=== PATIENT | female | born 1960 | race Caucasian/White ===

== ENCOUNTER 2023-12-04 10:21 | Observation (INO) ==
--- NOTE | 2023-10-22 10:17 | PAT Medication Instructions ---
Medication Instructions Date of Service October 22, 2023 Home Medications Medication Instructions Recorded diclofenac sodium 1 % topical gel 4 g topical ONCE PRN left knee 08/16/20 pain #100 grams fluticasone furoate 27.5 1 spray intranasal BID #47.4 mL 11/29/20 mcg/actuation nasal spray,suspension sumatriptan succinate 100 mg tablet 100 mg PO .COMPLEX #8 tabs 07/28/23 celecoxib 100 mg capsule (Celebrex) 100 mg PO BID PRN pain #60 caps 10/16/23 Medication List: Loperamide Hcl (Imodium) 2 mg PO TID PRN bupropion HCl 300 mg 24 hr tablet, extended release 300 mg PO HS diphenhydramine HCl 25 mg tablet 25 mg PO DAILY PRN Allergy Symptoms duloxetine 60 mg capsule,delayed release 60 mg PO HS loratadine 10 mg tablet 10 mg PO DAILY diclofenac sodium 1 % topical gel 4 g topical ONCE PRN left knee pain fluticasone furoate 27.5 mcg/actuation nasal spray,suspension 1 spray intranasal BID sumatriptan succinate 100 mg tablet 100 mg PO .COMPLEX calcium carbonate 600 mg-vitamin D3 5 mcg (200 unit) tablet 1 tab PO DAILY celecoxib 100 mg capsule (Celebrex) 100 mg PO BID PRN pain MEDICATION INSTRUCTIONS: Continue as directed diclofenac sodium 1 % topical gel 4 g topical ONCE PRN left knee pain (do not use near surgical area after bathing prior to surgery) fluticasone furoate 27.5 mcg/actuation nasal spray,suspension 1 spray intranasal BID ASK your surgeon for instructions celecoxib 100 mg capsule (Celebrex) 100 mg PO BID PRN pain DO NOT take the morning of surgery loratadine 10 mg tablet 10 mg PO DAILY diphenhydramine HCl 25 mg tablet 25 mg PO DAILY PRN Allergy Symptoms calcium carbonate 600 mg-vitamin D3 5 mcg (200 unit) tablet 1 tab PO DAILY Loperamide Hcl (Imodium) 2 mg PO TID PRN Take morning of surgery With a small sip of water, OTHERWISE NOTHING TO EAT OR DRINK AFTER MIDNIGHT: sumatriptan succinate 100 mg tablet 100 mg PO .COMPLEX (if needed) Take evening before surgery bupropion HCl 300 mg 24 hr tablet, extended release 300 mg PO HS duloxetine 60 mg capsule,delayed release 60 mg PO HS Loperamide Hcl (Imodium) 2 mg PO TID PRN sumatriptan succinate 100 mg tablet 100 mg PO .COMPLEX (if needed) Other Notes If you have any questions please call us at [phone] or [phone] or or [phone]
--- NOTE | 2023-11-02 09:12 | Anesthesiology Consultation ---
Date of Service November 02, 2023 Assessment & Plan (1) Encounter for pre-operative examination: - Infectious disease screening: Per assessment on 11/02/23: No known recent infectious disease contacts or current infectious disease symptoms. - Outpatient joint assessment: Pt currently scheduled for inpatient pathway. If surgeon requests review for outpatient joint pathway, patient is an acceptable candidate for outpatient joint program from anesthesia standpoint pending surgeon's office assessment that patient is motivated, has good support and completes [facility] Day Joint Program preop requirements. Chart Review Chart Review: Acceptable Risk for Surgery and Patient seen in Pre Admission Testing Teaching & Discussion Pre-Anesthesia Teaching/Discussion Notes: Instructed NPO after midnight before surgery,except medications with 15 cc of water. Medication instructions provided according to the PAT guidelines. History Surgery Operation Date: 12/04/23 09:00 Proposed Procedures p Left Total Knee Arthroplasty - Timo Luu DO Height/Weight Height: 5 ft 7 in Weight: 88.7 kg Allergies Allergy/AdvReac Type Severity Reaction Status Date / Time quinine Allergy Unknown Throat Verified 10/30/23 14:17 swelling theophylline Allergy Unknown Rash Verified 10/14/23 14:53 Medications Home Medications Medication Instructions Recorded Confirmed Last Taken Loperamide Hcl (Imodium) 2 mg PO TID PRN ##0 08/13/06 10/14/23 Unknown bupropion HCl 300 mg 24 hr tablet, 300 mg PO HS #30 tabs 12/13/18 10/14/23 Unknown extended release diphenhydramine HCl 25 mg tablet 25 mg PO DAILY PRN Allergy Symptoms 12/13/18 10/14/23 Unknown duloxetine 60 mg capsule,delayed 60 mg PO HS 12/13/18 10/14/23 Unknown release loratadine 10 mg tablet 10 mg PO DAILY #90 tabs 12/13/18 10/14/23 Unknown diclofenac sodium 1 % topical gel 4 g topical ONCE PRN left knee 08/16/20 10/14/23 Unknown pain #100 grams fluticasone furoate 27.5 1 spray intranasal BID #47.4 mL 11/29/20 10/14/23 Unknown mcg/actuation nasal spray,suspension sumatriptan succinate 100 mg tablet 100 mg PO .COMPLEX #8 tabs 07/28/23 10/14/23 Unknown calcium carbonate 600 mg-vitamin 1 tab PO DAILY 10/14/23 10/14/23 Unknown D3 5 mcg (200 unit) tablet celecoxib 100 mg capsule (Celebrex) 100 mg PO BID PRN pain #60 caps 10/16/23 Unknown Past Medical History Medical History Allergic rhinitis Arthritis Degenerative arthritis Depression Hypercholesteremia Diet controlled Left knee DJD Migraine Seasonal allergies Exercise / Class Metabolic Activity II 4-5 Yardwork/Stairs/Walk up hill Past Family History Family History Mother Diabetes Father Diabetes Hypertension Colon cancer Denies family history of Ovarian cancer Prostate cancer Myocardial infarction Breast cancer Past Surgical History Surgical History Hx of colonoscopy S/P section Past Anesthesia History No Hx of Anesthesia Complications and No Family Hx of Anesthesia Complications History of PONV No Hx of PONV and No Hx of Motion Sickness Social History Smoking Status: Never smoker Do You Dip or Chew Tobacco: No Hx Alcohol Use: Yes alcohol intake frequency: a few times a month Hx Substance Use: No substance use type: does not use Review of Systems Patient denies chest pain, shortness of breath, dyspnea on exertion, fever, chills, cough, wheezing, palpitations. Physical Exam Vital Signs BP 111/72 P 75 TEMP 98.1 SP02 95%RA RESP 16 Physical Full cervical extension range of motion. Full TMJ range of motion. TMD 3 finger breaths Mallampati Score 2 Dentition: intact Lungs: clear throughout to auscultation Cardiac: regular rate and rhythm, no murmurs noted Spine: normal Carotid arteries: negative bruit Extremities: no LE edema Lab Results Anesthesia Preop Results Results Anesthesia Widget: WBC 5.97 K/ul (4.8-10.8) 11/02/23 Hgb 12.3 g/dl (12.0-16.0) 11/02/23 Hct 36.4 % (37.0-47.0) L 11/02/23 Plt 268 K/uL (130-400) 11/02/23 Na 140 mmol/L (136-145) 11/02/23 K 3.9 mmol/L (3.5-5.1) 11/02/23 Cl 104 mmol/L (98-107) 11/02/23 CO2 31 mmol/L (21-32) 11/02/23 BUN 17 mg/dl (6-23) 11/02/23 Creat 0.84 mg/dl (0.6-1.2) 11/02/23 Glucose Level 87 mg/dl (70-99(Fasting)) 11/02/23 PT 10.3 Seconds (9.0-12.0) 11/02/23 PTT 25 Seconds (21-31) 11/02/23 INR 0.9 (0.9-1.1) 11/02/23 Blood Type O Positive 11/02/23 Antibody Screen NEGATIVE 11/02/23 Testing Electrocardiogram Date: 11/02/23 Findings: + NSR @ (71) Chest X-Ray Date: 11/02/23 FINDINGS: Lung volumes are normal. Lungs are clear. There is no pneumothorax or pleural effusion. Cardiac size is normal. Mediastinal contours are normal. There is no evidence for pulmonary edema. IMPRESSION: No acute cardiopulmonary findings.
--- NOTE | 2023-12-02 12:41 | History & Physical Report ---
Date of Service December 02, 2023 Assessment & Plan (1) Primary osteoarthritis of left knee: We will proceed with a left total knee arthroplasty. Postoperatively she will be started on aspirin for DVT prophylaxis and kept overnight in the hospital for postop medical management. She plans to use energy physical therapy upon discharge. History of Present Illness Chief Complaint: Osteoarthritis of the left knee. Primary Care Provider: Dennis Mckeon MD Molly is a pleasant 63-year-old female who has been dealing with chronic increasing left knee pain. X-rays and clinical examination have been diagnostic for advanced arthritis of the left knee. She has been seeing my partner who has been doing conservative management. She has done exercises and activity modifications. She has taken anti-inflammatories and has had multiple injections. After failing conservative treatment, she has elected proceed with a left total knee arthroplasty. Allergies Allergy/AdvReac Type Severity Reaction Status Date / Time quinine Allergy Unknown Throat Verified 10/30/23 14:17 swelling theophylline Allergy Unknown Rash Verified 10/14/23 14:53 Home Medications Medication Instructions Recorded Confirmed Type Loperamide Hcl (Imodium) 2 mg PO TID PRN ##0 08/13/06 10/14/23 History bupropion HCl 300 mg 24 hr tablet, 300 mg PO HS #30 tabs 12/13/18 10/14/23 History extended release diphenhydramine HCl 25 mg tablet 25 mg PO DAILY PRN Allergy Symptoms 12/13/18 10/14/23 History duloxetine 60 mg capsule,delayed 60 mg PO HS 12/13/18 10/14/23 History release loratadine 10 mg tablet 10 mg PO DAILY #90 tabs 12/13/18 10/14/23 History diclofenac sodium 1 % topical gel 4 g topical ONCE PRN left knee 08/16/20 10/14/23 Rx pain #100 grams fluticasone furoate 27.5 1 spray intranasal BID #47.4 mL 11/29/20 10/14/23 Rx mcg/actuation nasal spray,suspension sumatriptan succinate 100 mg tablet 100 mg PO .COMPLEX #8 tabs 07/28/23 10/14/23 Rx calcium carbonate 600 mg-vitamin 1 tab PO DAILY 10/14/23 10/14/23 History D3 5 mcg (200 unit) tablet celecoxib 100 mg capsule (Celebrex) 100 mg PO BID PRN pain #60 caps 10/16/23 Rx celecoxib 100 mg capsule (Celebrex) 100 mg PO BID #60 caps 11/19/23 Rx Past Med/Surg History Problem List (Updated 12/02/23 @ 12:41 by Timo Luu DO) Primary osteoarthritis of left knee CMC arthritis, thumb, degenerative Medical History Degenerative arthritis Left knee DJD Hypercholesteremia Diet controlled Arthritis Allergic rhinitis Migraine Depression Seasonal allergies Surgical History Hx of colonoscopy S/P section Family History Mother Diabetes Father Diabetes Hypertension Colon cancer Denies family history of Ovarian cancer Prostate cancer Myocardial infarction Breast cancer Social History Smoking Status: Never smoker Second Hand Exposure: No; Do You Dip or Chew Tobacco: No; Tobacco Cessation Education Requested by Patient: No Hx Alcohol Use: Yes Hx Substance Use: No Preferred Language: Irish Communication Ability: Effective Administrative Tech Required: No Beliefs That Will Affect Care: None marital status: Current Living Situation: Spouse current occupational status: employed current occupation: [employer] Other Information That Helps Us Care for You: No Feels Safe at Home: Yes Safety Concerns: Feels Safe At This Time Childhood Exposure to Second-Hand Smoke: No Dental Care, Regularly: No Physical Activity Frequency: 3-4 Times per Week Seatbelt Use: always Sunscreen Use: Yes Assistive Devices: Contacts and Glasses Review of Systems All systems reviewed & are unremarkable except as noted in HPI & below. Physical Exam Physical examination of the left knee shows a varus deformity. She has tenderness palpation of the distal medial femoral condyle and over the medial gunnar int line.. Results & Data Results & Data Laboratory Results . Diagnostic Findings X-rays of the left knee show advanced medial compartment arthritis with joint space narrowing, osteophyte formation, and [id number] articulation. PG Care Time/CCT Total # of Minutes Spent Total Time Spent with Patient: Total time spent is greater than 50% in coordination of care (as documented) at patient's floor/unit and/or counseling patient: Coding Level of Care Code None Diagnoses Primary osteoarthritis of left knee M17.12
[~2023-12-04 10:21] MED LIST: BUPIVACAINE 0.5 % 5 MG/1 ML PF 10ML VIAL ONE; ROPIVACAINE 0.5% 5 MG/ML 30 ML VIAL ONE
[2023-12-04] MEDS ORDERED: MIDAZOLAM HCL 1 MG/ML 2ML VIAL ONE (10:28)
[2023-12-04] MEDS ORDERED: fentaNYL citrate PF 100 MCG/2 ML VIAL ONE (10:28)
[2023-12-04] MEDS ORDERED: ONDANSETRON INJ 2 MG/ML 2 ML VIAL ONE (10:28)
[2023-12-04] MEDS ORDERED: PROPOFOL IV EMULSION 10 MG/ML 20 ML VIAL IV ONE ×2 (10:28→10:33)
[2023-12-04] MEDS: LR 60ML/HR IV SCH (10:57)
[2023-12-04] MEDS: LR 500ML BOLUS, THEN 15ML/HR IV SCH (10:57)
[2023-12-04] MEDS: GABAPENTIN 600 MG DOSE PO SCH (10:57)
[2023-12-04] MEDS: ACETAMINOPHEN 500 MG TAB PO SCH ×2 (10:58→21:32)
[2023-12-04] MEDS: dexAMETHasone**PF** 10 MG/ML VIAL IV SCH (10:58)
[2023-12-04] MEDS: FAMOTIDINE 20 MG TAB PO SCH (10:58)
--- NOTE | 2023-12-04 11:13 | History & Physical Bridge Note ---
Date of Service December 04, 2023 History & Physical Bridge Note I have examined the patient, reviewed the History & Physical and in the interval since the performance of the History & Physical I have noted the following changes of clinical significance: no changes noted
[2023-12-04] MEDS ORDERED: ePHEDrine sulfate 50 MG/ML AMP IV PRN (11:49)
[2023-12-04] MEDS ORDERED: ATROPINE SULFATE 0.1 MG/ML 10ML SYR IV PRN (11:49)
[2023-12-04] MEDS ORDERED: ONDANSETRON INJ 2 MG/ML 2 ML VIAL IV PRN ×2 (11:49→16:00)
[2023-12-04] MEDS ORDERED: fentaNYL citrate PF 100 MCG/2 ML VIAL IV PRN (11:49)
[2023-12-04] MEDS: TRANEXAMIC ACID 1,000 MG **IV Pre-op IV SCH (12:42)
[2023-12-04] MEDS: ceFAZolin 2000MG 2,000 MG/15 ML SYR IV SCH ×2 (13:00→21:32)
[2023-12-04] MEDS: ROPIV 0.5% 246mg, Ketorolac 30mg, EPINEPHrine 0.5mg in NSS INFIL SCH (13:23)
[2023-12-04] MEDS ORDERED: PHENYLEPHRINE 100MCG/ML 10ML SYR IV ONE (13:47)
[2023-12-04] MEDS: TRANEXAMIC ACID 1,000 MG **IV Intra-op IV SCH (13:56)
--- NOTE | 2023-12-04 14:44 | Operative Report ---
PG Post Operative Report Pre & Post Diagnosis Operation Date: 12/04/23 12:00 Pre-Op Diagnosis: Left Knee Degenerative Joint Disease Post-Op Diagnosis: Left Knee Degenerative Joint Disease I identified the patient and participated in the time-out.: Yes Procedure Operation Date: 12/04/23 12:00 Actual Procedures p Left Total Knee Arthroplasty(Left) - Timo Luu DO Surgeon Timo Luu DO Backend Python Developer Timo Payton PA-C Estimated Blood Loss 30 Findings Consistent with Post-Op Diagnosis Specimens Left femoral and tibial bone Description of Procedure Implants used: I used a Viv Persona total knee arthroplasty system with a size 7 narrow femur, E tibia, 31 oval patella, and a size 11 medial congruent polyethylene bearing. All components were cemented in place with Biomet cement. Molly arrived [facility] for the above procedure. She was seen in the preoperative holding area and the operative extremity was identified and signed. She was given a preoperative antibiotic, TXA, a spinal anesthetic and an adductor nerve block. She was taken back to the operating room and laid on the table in supine position. She was given basic sedation. The operative knee was then prepped and draped in sterile fashion. A timeout was done, and the patient and the operative extremity was properly identified. A midline incision was made directly over the patella. Dissection was taken down to the extensor mechanism. A subvastus arthrotomy was used. The medial retinaculum was released and the fat pad was mostly excised. The knee was flexed and the ACL, PCL, and meniscus were removed. A drill was sent down the center of the femoral canal followed by an intramedullary flash. Off that flash a distal femoral cutting block was placed. 9 mm was resected off the distal femur at 5 of valgus. A posterior referencing AP sizing guide was then placed on the distal femur. The femur measured to be a size 7. 2 drill holes were placed in 3 of external rotation. A 4-in-1 cutting block was then impacted into place. Anterior, posterior, and chamfer cuts were then made. The proximal tibia was then exposed. An external tibial alignment guide was placed. A tibial cut guide was then anchored in place and the proximal tibia was then resected. The posterior aspect of the knee was then opened up and any additional meniscus fragments and osteophytes were removed. The tibia measured to be a size E. The tibial plate was then placed in the appropriate rotation and the tibia was drilled and punched. Trial components were then placed. I used a size 11 medial congruent polyethylene insert. The knee was brought through a full range of motion and felt to be stable. The peg holes for the femoral component were then drilled. The patella was then everted and 9 mm was resected off the posterior aspect of the patella. The patella measured to be a size 31 oval. 3 peg holes were then drilled. A trial patella was placed. The knee was once again brought through a full range of motion and felt to be stable. Trial components were then removed. The surrounding soft tissues were injected with 100 cc of an orthopedic pain control cocktail. All components were then cemented into place with Biomet cement. The final polyethylene insert was then snapped into place. Once cement was dry the tourniquet was deflated. Hemostasis was obtained. A dilute betadyne lavage was then done for 3 minutes. The joint was then irrigated with normal saline solution. The subvastus arthrotomy was then closed with #1 Vicryl suture. The skin was closed with 2-0 Vicryl, 3-0V lock suture, and joselin. A soft compressive dressing was placed. She was then transferred to a hospital bed and taken to the postanesthesia care unit in stable condition. She tolerated the procedure well. Timo Payton PA-C, was present for the entire procedure. He was critical for patient positioning, prepping, draping, retraction exposure, wound closure and application of sterile dressing. I attest to the content of the Intraoperative Record and any orders documented therein. Any exceptions are noted below.
--- NOTE | 2023-12-04 15:06 | XRay Report ---
XR knee LT 1 or 2V routine HISTORY: 63 years-old Female Surgical Post Op left knee arthroplasty COMPARISON: 08/11/2023 TECHNIQUE: 2 views of the left knee FINDINGS: Total joint arthroplasty with patellar resurfacing. Anterior midline skin joselin with expected posto perative soft tissue swelling and deep tissue air. No acute fracture, dislocation or unexpected opaqu e foreign body. IMPRESSION: Total joint arthroplasty with expected postoperative changes. ACT 112: Negative or not required by law. The above report was generated using voice recognition software. It may contain grammatical, syntax o r spelling errors. Electronically signed by: Quinn Maxwell M.D. 12/04/2023 3:05 PM
--- NOTE | 2023-12-04 15:26 | Anesthesiology Progress Note ---
Date of Service December 04, 2023 Anesthesia Post Procedure Vital Signs Vital Signs: Temp Pulse Pulse Resp BP Pulse Ox O2 Del Method 12/04/23 15:10 36.3 C L 73 15 133/74 98 Nasal Cannula 12/04/23 15:00 70 16 137/74 97 Nasal Cannula 12/04/23 14:50 71 21 115/63 99 Nasal Cannula 12/04/23 14:40 72 18 121/69 93 Nasal Cannula 12/04/23 14:30 76 14 115/67 95 Nasal Cannula 12/04/23 14:22 36.1 C L 77 24 120/64 98 Oxymask 12/04/23 10:45 36.8 C 84 20 156/79 H 98 Room Air O2 Flow Rate 12/04/23 15:10 2 12/04/23 15:00 2 12/04/23 14:50 2 12/04/23 14:40 2 12/04/23 14:30 2 12/04/23 14:22 6 12/04/23 10:45 Transfer of Care Handoff Completed per policy Notes Mental Status: alert / awake / arousable and participated in evaluation Patient Amnestic to Procedure: Yes Nausea / Vomiting: adequately controlled Pain: adequately controlled Airway Patency, RR, SpO2: stable & adequate BP & HR: stable & adequate Hydration State: stable & adequate Anesthetic Complications: no major complications apparent and Pt Satisfied with anesthetic care
[2023-12-04] MEDS: ORTHO JOINT ANESTHETIC ONE (15:56)
[2023-12-04] MEDS ORDERED: MAGNESIUM HYDROXIDE SUSP 30 ML UDC PO PRN (16:00)
[2023-12-04] MEDS ORDERED: bisacodyL 10 MG SUPP PR PRN (16:00)
[2023-12-04] MEDS ORDERED: METOCLOPRAMIDE HCL INJ 5 MG/ML 2 ML VIAL IV PRN (16:00)
[2023-12-04] MEDS ORDERED: HYDROmorphone INJ 0.5 MG/0.5 ML SYR IV PRN (16:00)
[2023-12-04] MEDS ORDERED: NALOXONE HCL 0.4 MG/1 ML VIAL/CARP IV PRN (16:00)
[2023-12-04] MEDS ORDERED: diphenhydrAMINE Capsule 25 MG CAP PO PRN (16:21)
[2023-12-04] MEDS ORDERED: LOPERAMIDE HCL 2 MG CAP PO PRN (16:23)
[2023-12-04] MEDS ORDERED: SUMAtriptan succinate 100 MG TAB PO PRN (16:24)
[2023-12-04] MEDS: SODIUM CHLORIDE 0.9% 1,000 ML IV SCH (16:27)
[2023-12-04] MEDS: KETOROLAC 30 MG/ML VIAL IV SCH (16:42)
[2023-12-04] MEDS: oxyCODONE HCL IR 5 MG TAB (IMMEDIATE RELEASE) PO PRN (19:26)
[2023-12-04] MEDS: DULoxetine HCL 60 MG CAP PO SCH (21:21)
[2023-12-04] MEDS: buPROPion XL 300 MG TABCR PO SCH (21:21)
[2023-12-04] MEDS: ASPIRIN 81 MG ECTAB PO SCH (21:21)
[2023-12-04] MEDS: SENNA 8.6 MG TAB PO SCH (21:32)
[2023-12-04] MEDS: DOCUSATE SODIUM 100 MG CAP PO SCH (21:32)
--- OUTSIDE RECORDS SUMMARY | 2023-12-04 22:26 | External Medical Summary | Summary of Care ---
Author Name Unknown Organization [facility] Address [address] [facility] [place] [address] Phone [phone] Care Team Providers Care Fly Finisher Name Role Phone Dennis Mckeon MD Primary Care Provider [phone] Reason for Visit * Reason Comments Sore Throat A lot of drainage do wn her throat. Other Chest tightness and SOB from a lot of drainage. Knee surgery next Thursday. Encounter Details Date Type Department Care Team (Late st Contact Info) Description 11/24/2023 9:25 AM EDT [facility] [address] [place] [address] [id number] Cirilo Doherty PA-C [address] [place] [address] [id number] Sore throat*; Upper respiratory tract infection, unspecified type Allergies Active Allergy Reactions Criticality Noted Date Comments Quinine Rash 11/30/2015 Theophylline Anhydrous 10/21/2007 documented as of this encounter (statuses as of 11/24/2023) Medications Medication Sig Dispensed Refills Start Date End Date Status SUMATRIPTAN SUCCINATE 100 MG PO TABSIndications:Mi graine TAKE 1 TABLET AT ONSET, REPEAT IN 2 HOURS IF NEEDED. 9 Tab 6 07/16/2012 Active buPROPion XL (WELLBUTRIN XL) 300 MG TB24 Take 1 Tablet by mouth in the morning. 2 09/14/2015 Active DULoxetine (CYMBALTA) 60 MG CPEP Take 1 Capsule by mouth in the morning. 3 09/25/2015 Active Diclofenac Sodium 75 MG Oral Tablet Delayed Release (Voltaren) 04/25/2021 Active Ventolin HFA 108 (90 Base) MCG/ACT Inhalation Aerosol Solution Inhale by mouth 2 Puffs every 4 hours as needed for Cough or Wheezing. 18 g 1 02/14/2022 Active Azithromycin 250 MG Oral Tablet (Zithromax Z-Thai) Take two tablets by mouth on first day, then 1 tablet daily until gone 6 Tablet 02/14/2022 Active Additional Information Patient not taking.Reported on 11/24/2023 predniSONE 10 MG Oral Tablet (Deltasone)Indicat ions:SOB (shortness of breath),Chest tightness,Viral respiratory illness Take 5 tabs for 2 days, 4 tabs for 2 days, 3 tabs for 2 days, 2 tabs for 2 days 1 tab for 2 days 30 Tablet 02/15/2023 Active Additional Information Patient not taking.Reported on 11/24/2023 Albuterol Sulfate HFA 108 (90 Base) MCG/ACT Inhalation Aerosol SolutionIndication s:SOB (shortness of breath),Chest tightness,Viral respiratory illness Inhale 2 Puffs by mouth every 4 hours as needed for Dyspnea or Wheezing. 18 g 02/15/2023 Active Celecoxib 100 MG Oral Capsule (CeleBREX) Take 1 Capsule by mouth in the morning and 1 Capsule before bedtime. 11/19/2023 Active predniSONE 20 MG Oral Tablet (Deltasone) Take 1 Tablet by mouth 2 times a day for 3 days. 6 Tablet 11/24/2023 11/27/2023 Active Promethazine-DM 6.25-15 MG/5ML Oral Syrup Take 5 mL by mouth 4 times a day as needed for Cough. 120 mL 1 11/24/2023 Active documented as of this encounter (statuses as of 11/24/2023) Active Problems Problem Noted Date Diagnosed Date Migraine with aura 12/09/2007 documented as of this encounter (statuses as of 11/24/2023) Social History Tobacco Use Types Packs/Day Years Used Date Smoking Tobacco: Never Alcohol Use Standard Drinks/Week Comments Yes 0 (1 standard drink = 0.6 oz pur e alcohol) occasional Utilities Answer Date Recorded Do you have trouble paying y our heating, water, or electric bill? (Adult - for ages 18 years and over) Not on file 11/10/2023 Is your family able to pay t he heat, water, or electric bill? (Household - for ages 0-17 years) Not on file 11/10/2023 Does your family have access to good internet? (Household - for ages 0-17 years) Not on file 11/10/2023 Social Connections Answer Date Recorded How often do you feel lonely or isolated from those around you? (Adult - for ages 18 years and over) Not on file 11/10/2023 Sex and Gender Information Value Date Recorded Sex Assigned at Not on file Gender Identity Not on file Sexual Orientation Not on file Job Start Date Occupation Industry Not on file Not on file Not on file documented as of this encounter Last Filed Vital Signs Vital Sign Reading Time Taken Comments Blood Pressure 136/88 11/24/2023 9:32 AM EDT Pulse 91 11/24/2023 9:32 AM EDT Temperature 36.9 C (98.4 F) 11/24/2023 9:32 AM ED T Respiratory Rate 16 11/24/2023 9:32 AM EDT Oxygen Saturation 97% 11/24/2023 9:32 AM EDT Inhaled Oxygen Concentration - - Weight - - Height - - Body Mass Index - - documented in this encounter Patient Instructions * Patient Instructions* Cirilo Doherty PA-C - 11/24/2023 9:43 AM EDT FLUIDS FLUIDS FLUIDS; MOTRIN AND TYLENOL DIRECTED FOR PAIN AND FEVERS; RETURN TO or SEE PCP IF NEEDED. documented in this encounter Progress Notes * Cirilo Doherty PA-C - 11/24/2023 9:33 AM EDT Subjective: Molly Naqvi is a 63 year old female. Chief Complaint Patient presents with Sore Throat A lot of drainage down her throat. Other Chest tightness and SOB from a lot of drainage. Knee surgery next Thursday. Nursing Notes: Jessy Alfaro LPN 11/24/23 0974 Signed Nursing Notes: CC: Chief Complaint Patient presents with Sore Throat A lot of drainage down her throat. Other Chest tightness and SOB from a lot of drainage. Knee surgery next Thursday. Brief Hx: Patient is here with complaint of sore throat with a lot of drainage down her throat, Productive cough and she said yesterday she had a lot of tightness in her chest and SOB from all of thedrainage. Patient said she has knee surgery next Thursday and want's to be better before then Duration/Onset: Thursday OTC meds: mucinex and her inhaler Accompanied by: self HPI: 2 DAYS NOW OF SORE THROAT, SINUS HEADACHE/CONGESTION; HAS HAD FOR 1-2 DAYS LONGER; NO FEVERS; USING MUCINEX AND INHALER FOR THE TIGHTNESS IN CHEST/THROAT; IS IN A/C AT WORK BUT NOT MUCH AT HOME; WAS OFF FROM WORK YESTERDAY AND IS SCHEDULED TO GO TO WORK TODAY ([employer]) BUT STOPPED IN HERE FIRST; IS SCHEDULED TO HAVE KNEE SURGERY 12/03 AND HOPING TO BE BETTER BEFORE THEN. All other systems reviewed and are negative. Patient Active Problem List Diagnosis Migraine with aura Current Outpatient Medications Medication Sig Dispense Refill SUMATRIPTAN SUCCINATE 100 MG PO TABS TAKE 1 TABLET AT ONSET, REPEAT IN 2 HOURS IF NEEDED. 9 Tab 6 buPROPion XL (WELLBUTRIN XL) 300 MG TB24 Take 1 Tablet by mouth in the morning. 2 DULoxetine (CYMBALTA) 60 MG CPEP Take 1 Capsule by mouth in the morning. 3 Ventolin HFA 108 (90 Base) MCG/ACT Inhalation Aerosol Solution Inhale by mouth 2 Puffs every 4 hours as needed for Cough or Wheezing. 18 g 1 Albuterol Sulfate HFA 108 (90 Base) MCG/ACT Inhalation Aerosol Solution Inhale 2 Puffs by mouth every 4 hours as needed for Dyspnea or Wheezing. 18 g 0 Celecoxib 100 MG Oral Capsule (CeleBREX) Take 1 Capsule by mouth in the morning and 1 Capsule before bedtime. predniSONE 20 MG Oral Tablet (Deltasone) Take 1 Tablet by mouth 2 times a day for 3 days. 6 Tablet 0 Promethazine-DM 6.25-15 MG/5ML Oral Syrup Take 5 mL by mouth 4 times a day as needed for Cough. 120mL 1 Diclofenac Sodium 75 MG Oral Tablet Delayed Release (Voltaren) (Patient not taking: Reported on 11/24/2023) Azithromycin 250 MG Oral Tablet (Zithromax Z-Thai) Take two tablets by mouth on first day, then 1 tablet daily until gone (Patient not taking: Reported on 11/24/2023) 6 Tablet 0 predniSONE 10 MG Oral Tablet (Deltasone) Take 5 tabs for 2 days, 4 tabs for 2 days, 3 tabs for 2 days, 2 tabs for 2 days 1 tab for 2 days (Patient not taking: Reported on 11/24/2023) 30 Tablet 0 No current facility-administered medications for this visit. Review of patient's allergies indicates: Allergen Reactions Quinine Rash Theophylline Anhydrous OBJECTIVE: BP 136/88 | Pulse 91 | Temp 36.9 C (98.4 F) (Tympanic) | Resp 16 | SpO2 97% Review of Systems: See HPI. All other systems reviewed and are negative. PHYSICAL EXAM: General: alert, healthy, and no distress; PLEASANT; MILDLY FATIGUED. Head: Normocephalic, No masses, lesions, tenderness or abnormalities Eye Exam: PERRLA, extraocular movements intact, conjunctiva are pink and non- injected, sclera GLASSY Ears: External ears normal, Canals clear, TM's Normal Nose: no mucosal erythema, SLIGHT mucosal edema, no purulent discharge Oropharynx: no exudate, no erythema, lips, buccal mucosa, and tongue normal, and mucous membranes are moist; NO PND Lymph: NO palpable lymphadenopathy Heart: regular rate & rhythm, no murmur, and no gallops Lungs: chest symmetric with normal AP diameter, no chest deformities noted, no chest wall tenderness, lungs clear to auscultation; NO WHEEZE; NO RHONCHI, BUT MILD THROAT CLEARING/DRY COUGH NOTED. Neuro Exam: alert & oriented x 3 with fluent speech, no focal motor/sensory deficits, gait normal, reflexes normal and symmetric ASSESSMENT/PLAN: Sore throat (Primary) - STREP A SCREEN, POINT OF CARE (ENTER/EDIT) - GROUP A STREP PCR - RETURN TO WORK OR SCHOOL Upper respiratory tract infection, unspecified type - RETURN TO WORK OR SCHOOL Other orders - predniSONE 20 MG Oral Tablet (Deltasone); Take 1 Tablet by mouth 2 times a day for 3 days. - Promethazine-DM 6.25-15 MG/5ML Oral Syrup; Take 5 mL by mouth 4 times a day as needed for Cough. Cirilo Doherty PA-C 11/24/23 documented in this encounter Nursing Notes * Jessy Alfaro LPN - 11/24/2023 9:29 AM EDT Nursing Notes: CC: Chief Complaint Patient presents with Sore Throat A lot of drainage down her throat. Other Chest tightness and SOB from a lot of drainage. Knee surgery next Thursday. Brief Hx: Patient is here with complaint of sore throat with a lot of drainage down her throat, Productive cough and she said yesterday she had a lot of tightness in her chest and SOB from all of thedrainage. Patient said she has knee surgery next Thursday and want's to be better before then Duration/Onset: Thursday OTC meds: mucinex and her inhaler Accompanied by: self documented in this encounter Plan of Treatment Pending Results Name Type Priority Associated Diagnoses Date /Time GROUP A STREP PCR Lab Routine Sore throat 11/24/2023 9:43 AM EDT Health Maintenance Due Date Last Done Comments Lipid Panel 1961 Depression Screening 1973 HIV Screening 02/11/1976 Hepatitis C Screening 1979 DTaP,Tdap,and Td Vaccines (1 - Tdap) 02/11/1980 Pap Smear 1982 Cervical Cancer Screening 1991 HPV/Co-Test 1991 Mammogram 2001 Cologuard 2006 Colonoscopy 2006 Colorectal Cancer Screening 2006 Fecal Occult Blood Test 2006 Sigmoidoscopy 2006 Influenza Vaccine (FLU shot) (#1) 2024 02/27/2023, 03/18/2022, 03/12/2021, Additional history exists Zoster Vaccines Completed 03/25/2018, 01/23, 01/23/2018 COVID-19 Vaccine Completed 02/27/2023, , 09/23/2021, Additional history exists GARDASIL-HPV IMMUNIZATION SERIES Aged Out No longer eligible based on patient's age to complete this topic Hepatitis B Aged Out No longer eligi ble based on patient's age to complete this topic MENINGOCOCCAL (MENACTRA/MENVEO) Aged Out No longer eligible based on patient's age to complete this topic Pneumococcal Vaccine: Pediatrics (0 to 5 Years) and At-Risk Patients (6 to 64 Years) Aged Out No longer eligible based on patient's age to complete this topic documented as of this encounter Medical Devices Not on filedocumented as of this encounter Procedures Procedure Name Priority Date/Time Associated Diagnosis Comments STREP A SCREEN, POINT OF CARE (ENTER/EDIT) Routine 11/24/2023 Sore throat documented in this encounter Results * STREP A SCREEN, POINT OF CARE (ENTER/EDIT) (11/24/2023) Strep A Result Negative Negative Procedural Control Valid? Yes Lot Number [id number] Expiration Date 11/05/24 Swab Throat swab / Unknown 11/24/2023 Cirilo Doherty PA-C LAB POINT OF CA RE TEST ENTER/EDIT ORDERABLES documented in this encounter Visit Diagnoses Diagnosis Sore throat- Primary Acute pharyngitis Upper respiratory tract infection, unspecified type documented in this encounter Care Teams Fly Finisher Relationship Specialty Start Date End Date Pro, Dennis Nunes MD [address] [place] [address] PCP - General Internal Medicine 11/30/15 documented as of this encounter"
--- OUTSIDE RECORDS SUMMARY | 2023-12-04 22:26 | External Medical Summary ---
Author Name Unknown Address Unknown Organization K01:[facility] [address] [facility] [address] Laboratory Report Ordering Provider Test Date Status MADDYBHAVNA 11/24/2023 09:43:32 Final Observation Date Value Abnormality Reference (Units) Status Streptococcus pyogenes DNA [Presence] in Throat by PEEWEE with probe detection 11/24/2023 09:43:32 Negative. No Group A Streptococcus detected by PCR (amplified probe). Negative Final This test was developed and its performance characteristics determined by [facility]. It has not been cleared or approved by the FDA. The laboratory is regulated under CLIA as qualified to perform high- complexity testing. This test is used for clinical purposes. It should not be regarded as investigational or for research. Performing Location LAB[facility]AT[facility] [address] [place] [facility] [address]
--- NOTE | 2023-12-05 07:41 | Orthopedic Progress Note ---
Date of Service December 05, 2023 Assessment & Plan (1) Status post left knee replacement: Overall she is doing well. She is not having much pain in the left knee. She will be seen by physical therapy today for ambulation and range of motion exercises. The nursing staff can change her dressing after physical therapy. She is on aspirin for DVT prophylaxis. She can be discharged home later today. She will follow-up with orthopedics in 2 weeks. Brendan Barnes was seen and examined at bedside this morning. Overall she is doing very well. She not having much pain in the left knee. She has been up and ambulating to the bathroom. She has no complaints.. Review of Systems All systems reviewed & are unremarkable except as noted in HPI & below. Physical Exam Physical examination of the left knee, the dressing is clean and dry. Her leg is out full extension. She has active dorsiflexion plantarflexion of her left ankle.. Results & Data Results & Data Laboratory Results . Diagnostic Findings Postoperative x-rays of the left knee show the prosthesis to be in anatomic alignment without any evidence of fracture, his cage, or loosening.. PG Care Time/CCT Total # of Minutes Spent Total Time Spent with Patient: Total time spent is greater than 50% in coordination of care (as documented) at patient's floor/unit and/or counseling patient: Coding Level of Care Code 35457 Post Operative Follow-Up Diagnoses Status post left knee replacement Z96.652
--- NOTE | 2023-12-05 07:42 | Discharge Summary ---
Date of Service December 05, 2023 Admission HPI (Per Admitting) Molly is a pleasant 63-year-old female who has been dealing with chronic increasing left knee pain. X-rays and clinical examination have been diagnostic for advanced arthritis of the left knee. She has been seeing my partner who has been doing conservative management. She has done exercises and activity modifications. She has taken anti-inflammatories and has had multiple injections. After failing conservative treatment, she has elected proceed with a left total knee arthroplasty. Admission Exam (Per Admitting) Physical examination of the left knee shows a varus deformity. She has tenderness palpation of the distal medial femoral condyle and over the medial joint line.. Principal Diagnosis Same as "Discharge Diagnosis" noted below under Discharge Instructions. Discharge Exam Physical examination of the left knee, the dressing is clean and dry. Her leg is out full extension. She has active dorsiflexion plantarflexion of her left ankle.. Discharge Data Procedures Performed Operation Date: 12/04/23 12:00 Actual Procedures p Left Total Knee Arthroplasty(Left) - Timo Luu DO Ordered Studies 12/04/23 05:00 US - OR guided needle placemen Routine Hospital Course (1) Status post left knee replacement: On December 04, [address] [facility] and underwent a left knee replacement without complication. She had a spinal anesthetic. Postoperatively she was started on aspirin for DVT prophylaxis and transferred to the general orthopedic floors. Her hospital course was uneventful. On postop day #1, her vital signs were stable and her pain was well-controlled. She was able to participate well with physical therapy doing ambulation and range of motion exercises. She was then discharged home. She will follow-up with orthopedics in 2 weeks. PG Care Time/CCT Total # of Minutes Spent Total Time Spent with Patient: Total time spent is greater than 50% in coordination of care (as documented) at patient's floor/unit and/or counseling patient: Discharge Plan Discharge Items Patient Disposition: Home - Self-Care Reason For Visit: Left Knee Degenerative Joint Disease Discharge Diagnosis: Left knee replacement Activity: Per Instructions section Non-emergency contact: Surgeon Call non-emergency contact if: your wound has increased redness and your wound has increased drainage Follow-up/Referrals: Pro,Dennis Rodriguez MD [Primary Care Provider] - Diet: Regular Addtl Attending Provider Instructions: Activity and Therapy Recommendations: * If you are using [facility] then therapy will be provided at your home until they feel you have accomplished all of your goals. * If you are using [facility] then Physical Therapy will be provided until they feel you are ready to start Outpatient Physical Therapy. * If you are not using home therapy then Outpatient Physical Therapy should start about 3-5 days from your day of surgery. Therapy will last about 6-10 weeks * It is important not to put a pillow under your knee when you are relaxing or sleeping. It is just as important to make sure you are getting your knee perfectly straight as it is to regain your knee bend. * You were shown a series of exercises in the hospital. Do these exercises three times each day including the exercises you were shown in physical therapy. * Get up and walk several times each day. For the first four weeks, try not to stand or walk for more than one hour at a time. If you do stand or walk for more than one hour, you will not hurt anything, but your leg will likely swell. * As you feel comfortable, you may change from the walker or crutches to a cane and then to independent walking. Medications: * Narcotic You will likely be sent home from the hospital with a prescription for the narcotic pain medication that worked best throughout your stay. * Cefadroxil -take the antibiotic twice a day for 10 days to help prevent infection. * Aspirin Most patients will be required to take Aspirin 81mg twice a day for 6 weeks after surgery. This is obtained [id number] and a prescription is not necessary. * Other medications may be prescribed for specific circumstances. If you have any questions, please call the office at . * Resume previous home medications unless otherwise instructed TEDs/Elastic Stockings: The white elastic stockings help limit swelling and prevent blood clots from forming in your legs.~ The more you wear them, the more they work. Wear them for six weeks. Dressing Care: The dressing can be changed after physical therapy on postop day #1. Daily dry dressing changes for a few days, especially if the incision is still draining some. If the incision is not draining then you may leave the joselin open to air. If there is a little bit of drainage or if the joselin are getting stuck on your clothing then cover the incision with a dry dressing. The joselin will be removed at your 2 week follow-up appointment. Showering: You may shower 5 days from the day of surgery as long as the incision is no longer draining. You may shower with the joselin exposed. Let soapy water run over the joselin and pat them dry. Do not scrub or soak the incision. Things To Watch For: * Drainage from the incision site that occurs more than one week after your surgery. * Increased redness at the incision site. * Fever above 102 degrees Fahrenheit. * Unusual chest pain or shortness of breath. * Call [facility] at with any of the above problems Follow-Up Visit: Follow-up with Dr. Luu's PA (Timo Payton) 2-3 weeks after your day of surgery. He will remove your joselin and answer any questions. If you have any additional questions or concerns, Dr Luu is usually in the office at the same time and will be available An appointment was probably scheduled when you signed-up for surgery in the office. If you have any questions call Office Instructions: More detailed instructions as well as Frequently Asked Questions were provided in a folder by our office when you signed-up for surgery. Please review these instructions when you get home. If you have any further questions or concerns, please feel free to call the office at [phone] Pending Studies at Discharge: No Stand-Alone Forms: [facility] Medications and DC Order Prescriptions: New oxycodone 5 mg Tablet 5 mg PO Q4H PRN (Reason: pain) Qty: 30 0RF cefadroxil 500 mg capsule 500 mg PO BID 10 Days Qty: 20 0RF aspirin 81 mg Tablet,Delayed Release (Dr/Ec) 81 mg PO BID 42 Days Qty: 0 0RF Continued Loperamide Hcl (Imodium) 2 MG capsule 2 mg PO TID PRN Qty: 0 Patient Comments: USUALLY TAKES TID diclofenac sodium 1 % gel 4 g topical ONCE PRN (Reason: left knee pain) Qty: 100 2RF fluticasone furoate 27.5 mcg/actuation spray,suspension 1 spray INTNAS BID Qty: 47.4 1RF Rx Instructions: into each nostril sumatriptan succinate 100 mg tablet 100 mg PO .COMPLEX Qty: 8 5RF Rx Instructions: 100 mg PO TAKE 1 TABLET FOR MIGRAINER RELIEF. MAY REPEAT 2 HOURS LATER. MAXIMUM 200MG/DAY; celecoxib [Celebrex] 100 mg capsule 100 mg PO BID PRN (Reason: pain) Qty: 60 0RF celecoxib [Celebrex] 100 mg capsule 100 mg PO BID Qty: 60 0RF loratadine 10 mg tablet 10 mg PO DAILY Qty: 90 duloxetine 60 mg capsule,delayed release(DR/EC) 60 mg PO HS bupropion HCl 300 mg tablet extended release 24 hr 300 mg PO HS Qty: 30 diphenhydramine HCl 25 mg tablet 25 mg PO DAILY PRN (Reason: Allergy Symptoms) calcium carbonate-vitamin D3 [Calcium + D] 600 mg-5 mcg (200 unit) Tablet 1 tab PO DAILY Discharge Orders: Discharge Order (Routine); Ordered 12/05/23 Ordered By: Timo Luu Admission Data Admit Date/Time: 12/04/23 14:23 Attending Provider: Timo Luu Admit Provider: Timo Luu Primary Care Provider: Dennis Mckeon
[2023-12-05] MEDS: LORATADINE 10 MG TAB PO SCH (08:17)
[2023-12-05] MEDS: MULTIVITAMIN TAB PO SCH (08:17)
[2023-12-05] MEDS: dexAMETHasone 4 MG TAB PO SCH (08:18)
== END 2023-12-05 11:45 | disposition home or self-care (01) ==
LOC: 3E 10:21 → ASU 10:21

== ENCOUNTER 2025-01-22 14:46 | Inpatient (IN) ==
[2025-01-22] MEDS: SODIUM CHLORIDE 0.9% 1,000 ML IV ONE (15:30)
[2025-01-22 15:48] LABS: Hematocrit (blood only) 37.5 % (37.0-47.0); Hemoglobin 12.5 g/dl (12.0-16.0); Immature Granulocytes # (auto) 0.06 K/uL (0.01-0.20); Immature Granulocytes % (auto) 0.6 %; Mean Corpuscular Hemoglobin 31.3 pg (25.0-34.0); Mean Corpuscular Volume 93.8 fL (80.0-100.0); Platelet Count 253 K/uL (130-400); RDW Standard Deviation 47.2 fL (36.4-46.3); Red Blood Count 4.00 M/uL (4.20-5.40); White Blood Count 10.29 K/ul (4.8-10.8)
[2025-01-22 16:07] LABS: Anion Gap 8.0 (3-11); Blood Urea Nitrogen 12.0 mg/dl (6-23); Calcium 9.3 mg/dl (8.6-10.3); Carbon Dioxide 26.0 mmol/L (21-32); Chloride 104.0 mmol/L (98-107); Creatinine Clr Calc Pharmacy 104.1 ml/min; Glucose 121.0 mg/dl (70-99(Fasting)); Potassium 3.0 mmol/L (3.5-5.1); Sodium 138.0 mmol/L (136-145)
[2025-01-22] MEDS: ONDANSETRON INJ 2 MG/ML 2 ML VIAL IV STA (16:17)
[2025-01-22 16:25] LABS: Alanine Aminotransferase 785.0 U/L (7-52); Albumin Level 4.1 gm/dl (3.4-5.0); Alkaline Phosphatase 162.0 U/L (34-104); Bilirubin,Total 6.5 mg/dl (0.2-1.0); Lipase 1122.0 U/L (11-82); Total Protein 7.2 gm/dl (6.0-8.3)
[2025-01-22 16:31] LABS: INR 0.9 (0.9-1.1); Partial Thromboplastin Time 22 Seconds (21-31); Prothrombin Time 10.1 Seconds (9.0-12.0)
[2025-01-22] MEDS: SODIUM CHLORIDE 0.9% 1,000 ML IV SCH (17:25)
[2025-01-22] MEDS: MoRPHine SULFATE 4 MG/ML 1 ML CARP\\VIAL IV STA (17:30)
[2025-01-22 17:37] LABS: Appearance Urine Clear (Clear); Bacteria Urine Automated None Seen (None Seen); Cast Urine Automated 0-2 /lpf (0-2); Epithelial Cell Urine Auto 0-2 /hpf (0-2); Glucose Urine UA Negative (Negative); WBC Urine Automated 0-5 /hpf (0-5)
--- NOTE | 2025-01-22 17:44 | History & Physical Report ---
Date of Service January 22, 2025 Assessment & Plan (1) Gallstone pancreatitis: (2) Hypokalemia: (3) Atrial fibrillation with RVR: Plan This patient is a 64-year-old female who presented on 01/22 for N/V/D. #Suspected gallstone pancreatitis Elevated total bilirubin at 6.5 on arrival Elevated transaminitis on arrival; continue to trend LFTs Lipase elevated at 1122 Gallbladder ultrasound revealed prominent intrahepatic ducts and increased caliber of the common duct CBD measuring up to 1.1 cm MRCP ordered, pending Gastroenterology consult appreciated for potential ERCP NSS 1000 mL IV x 1 Continue IVF with LR at 125mL/hr times 3L IV pain control with acetaminophen and Dilaudid PRN IV antiemetics PRN; QTc okay at 487 IV famotidine 20 mg daily #Atrial fibrillation with RVR Brief episode of atrial fibrillation with RVR in the emergency department Converted back to NSR shortly thereafter [id number] score: 1 (female; no PMH of CHF, HTN, stroke, vascular disease, or T2DM Will defer starting anticoagulation in the setting of potential GI/surgical procedure Troponin ordered, pending Continuous telemetry monitoring for now #Hypokalemia K 3.0 on arrival K riders 10 mEQ x 5 Recheck a.m. K #Anxiety Continue bupropion, duloxetine Disposition: Admit to [facility] telemetry VTE PPx: SCDs; prior to potential intervention History of Present Illness Chief Complaint: Illness Primary Care Provider: Dennis Mckeon MD Mrs. Naqvi is a 64-year-old female with PMH of asthma, migraines, anxiety, and depression. She presented on 01/22 for acute onset of nausea, vomiting, and epigastric pain that awoke her from sleep at 2 AM. Patient tried to take Pepcid, but threw it back up. She characterizes it as a sharp stabbing epigastric pain that is constant 8 out of 10. No radiation to the back, but she has noticed episodes of left scapular pain this past week. Additionally, the patient had a small amount of diarrhea this morning. She went to the [facility] urgent care today and was told she was looking "jaundiced". Patient tried to eat 2 Ritz crackers at 7 AM, but could not keep them down. She is also been unable to keep down any sips of water throughout the day. Patient took 2 Tylenol around 6 AM, because she thought she had a fever, but she was unsure if the stay down for long enough to have an effect. Additionally, patient had 2 episodes of "yellow stool" on Thursday and Thursday, but this returned to normal/brown stool on Thursday. Patient did not take any of her regular morning medications today. She takes aspirin daily, and has done so since last summer when she had her left knee surgery. Patient does not have a history of atrial fibrillation to her knowledge. Only prior abdominal surgery was for C- section. No prior history of pancreatitis. She denies prior history of heavy alcohol use. She only drinks socially once or twice per month, last drink was a glass of wine on 01/19. Patient denies smoking or tobacco use. Patient is hypertensive at 159/81 at time of admission; vitals otherwise stable. ED course: NSS 1000 mL IV x 1 Zofran 4 mg IV x 1 Morphine 4 mg IV x 1 ROS: Patient endorses fever, chills, night-sweats, epigastric pain, N/V/D, and epistaxis (which patient attributes to vomiting). Patient denies chest pain, SOB, chest palpitations, cough, hematemesis, blood in the urine/stool, or burning with urination. Allergies Allergy/AdvReac Type Severity Reaction Status Date / Time quinine Allergy Severe Throat Verified 01/24/25 14:47 swelling theophylline Allergy Intermediate Rash Verified 01/24/25 14:47 Home Medications Medication Instructions Recorded Confirmed Type bupropion HCl 300 mg 24 hr tablet, 300 mg PO HS #30 tabs 12/13/18 01/22/25 History extended release diphenhydramine HCl 25 mg tablet 25 mg PO DAILY PRN Allergy Symptoms 12/13/18 01/22/25 History duloxetine 60 mg capsule,delayed 60 mg PO HS 12/13/18 01/22/25 History release loratadine 10 mg tablet 10 mg PO DAILY #90 tabs 12/13/18 01/22/25 History albuterol sulfate 90 mcg/actuation 2 puff inhalation .Q4-6H PRN 01/22/25 01/22/25 History aerosol inhaler Shortness Of Breath Or Wheezing aspirin 81 mg tablet,delayed 81 mg PO DAILY 01/22/25 01/22/25 History release famotidine 20 mg tablet 20 mg PO DAILY 01/22/25 01/22/25 History fluticasone propionate 50 2 spray intranasal BID 01/22/25 01/22/25 History mcg/actuation nasal spray,suspension loperamide 2 mg tablet (Imodium 2 mg PO DIRECTED PRN Diarrhea 01/22/25 01/22/25 History A-D) magnesium oxide 1,000 mg PO DAILY PRN LEG CRAMPS 01/22/25 01/22/25 History sumatriptan succinate 100 mg tablet 100 mg PO .COMPLEX PRN Migraine 01/22/25 01/22/25 History Headache Past Med/Surg History Problem List Atrial fibrillation with RVR Hypokalemia Gallstone pancreatitis (Acute) Family history of colon cancer in father Status post left knee replacement (~11/2023) Primary osteoarthritis of left knee CMC arthritis, thumb, degenerative Medical History Degenerative arthritis Left knee DJD Hypercholesteremia Diet controlled Arthritis Allergic rhinitis Migraine Depression Seasonal allergies Surgical History (Updated 01/25/25 @ 16:08 by Elyssa Castro RN) Hx laparoscopic cholecystectomy (01/25/25) Laparoscopic Cholecystectomy(Not Applicable) - Rosalva Latif DO History of total left knee replacement Hx of colonoscopy S/P section Family History Mother Diabetes Father Diabetes Hypertension Colon cancer Denies family history of Ovarian cancer Prostate cancer Myocardial infarction Breast cancer Social History Smoking Status: Never smoker Second Hand Exposure: No; Do You Dip or Chew Tobacco: No; Hx Alcohol Use: Yes Alcohol type: beer, wine and hard liquor Hx Substance Use: No Preferred Language: Kazakh Communication Ability: Effective Single Stayer Operator Required: No Beliefs That Will Affect Care: None marital status: Current Living Situation: Spouse current occupational status: employed current occupation: Switchboard Feels Safe at Home: Yes Childhood Exposure to Second-Hand Smoke: No Dental Care, Regularly: No Physical Activity Frequency: 3-4 Times per Week Seatbelt Use: always Sunscreen Use: Yes Assistive Devices: Walker Review of Systems Review of Systems: See HPI above Physical Exam Physical Exam: General: no acute distress; pleasant affect; at bedside; non-toxic appearing; well-nourished; cooperative; SpO2 97% on RA HEENT: normocephalic, atraumatic; no scleral icterus; PERRLA w/ EOMs intact; vision and hearing grossly intact Neck: supple; no lymphadenopathy; trachea midline Skin: Jaundiced; warm, dry without signs of tenting; no cyanosis; no rashes, bruising, lesions, or erythema noted CV: chest wall NTP; RRR; S1/S2 normal; no murmurs/rubs/gallops; pulses intact and symmetric at radial, DP, and PT Lungs: no acute respiratory distress; symmetrical chest wall expansion; clear breath sounds across all lung dutta w/o adventitious sounds; no wheezing ABD: Soft, NTP in all 4 quadrants; however, positive Oconnell sign; epigastric region is TTP; no rashes or bruising appreciated on the abdomen or flanks bilaterally; BS present; no rebound/guarding; no distention Back: Positive left CVA tenderness; no rashes or bruising noted on the back MSK: no tics or fasciculations; no edema noted in the LEs b/l, nonerythematous Neuro: A&Ox3; normal mood and affect; fluent speech; no focal deficits; patient reports sensation is intact and symmetric in the lower extremities bilaterally assessed via light touch Results & Data Results & Data Vital Signs (Past 12 Hours) Vital Signs Temp Pulse Pulse Resp BP BP BP 01/22/25 17:20 71 22 159/81 H 01/22/25 16:25 69 24 01/22/25 16:13 126 H 23 160/102 H 01/22/25 16:10 150 H 01/22/25 16:04 01/22/25 15:42 71 01/22/25 15:01 67 14 174/81 H 01/22/25 14:48 36.3 C L 69 18 176/89 H Pulse Ox O2 Del Method 01/22/25 17:20 97 Room Air 01/22/25 16:25 98 Room Air 01/22/25 16:13 97 Room Air 01/22/25 16:10 01/22/25 16:04 Room Air 01/22/25 15:42 01/22/25 15:01 01/22/25 14:48 97 Room Air Laboratory Results Abnormal lab results 01/22/25 01/22/25 Range/Units 15:30 17:20 RBC 4.00 L (4.20-5.40) M/uL RDW Std Deviation 47.2 H (36.4-46.3) fL Neut # (Auto) 8.82 H (1.40-6.50) K/uL Lymph # (Auto) 0.92 L (1.20-3.40) K/uL Potassium 3.0 L (3.5-5.1) mmol/L Glucose 121 H (70-99(Fasting)) mg/dl Total Bilirubin 6.5 H (0.2-1.0) mg/dl Direct Bilirubin 4.4 H (0-0.2) mg/dl AST 350 H (13-39) U/L ALT 785 H (7-52) U/L Alkaline Phosphatase 162 H (34-104) U/L Lipase 1122 H (11-82) U/L Urine Ketones 2+ H (Negative) Urine Blood 1+ H (Negative) Urine Bilirubin 1+ H (Negative) Urine RBC (Auto) 6-10 H (0-2) /hpf Diagnostic Findings Chest/Abdomen X-ray 01/22/25 15:30 EXAM: Portable AP chest and AP supine and upright abdominal radiographs TECHNIQUE: AP portable radiograph of the chest and AP supine and upright abdominal radiographs were obtained. INDICATION: Pain Comparison: Chest radiograph November 02, 2023 FINDINGS: LINES and TUBES: None CARDIOVASCULAR: Cardiac silhouette is stably and mildly enlarged. LUNGS/PLEURA: Mild pulmonary vascular congestion is similar. Patchy left retrocardiac densities may represent atelectasis or mild pneumonia. No significant pleural fluid. No discernible pneumothorax. ABDOMEN: Nonobstructive bowel gas pattern. No radiographic evidence of free air. OSSEOUS/OTHER: No displaced acute osseous process identified. IMPRESSION: Nonobstructive bowel gas pattern. No radiographic evidence of free air. Similar mild congestive changes of the cardiovascular system to the previous examination Patchy left retrocardiac densities may represent atelectasis or mild pneumonia. Electronically signed by Americo Song 01-22-2025 5:47 PM Gallbladder Ultrasound 01/22/25 15:30 Exam: Right upper quadrant ultrasound. History: Right upper quadrant pain. Emesis. Comparison:None. Findings: Included pancreas is within normal limits. Detail is limited. Pancreatic duct 3 mm. This is upper limits of normal. Mild intrahepatic ductal dilatation. Liver demonstrates no mass with normal echotexture. Portal vein is patent with normal directional flow. Gallbladder is moderately distended without wall thickening or pericholecystic fluid. Intraluminal echo consistent with small stone. Common duct measures 1.1 cm diameter. No choledocholithiasis. Right kidney measures 10.5 cm in length. Normal echotexture without stone, mass or hydronephrosis. Impression: 1. Prominent distended gallbladder with uncomplicated cholelithiasis. 2. Prominent intrahepatic ducts and increased caliber common duct. No choledocholithiasis or pancreatic head mass. Etiology uncertain. Recommend CT or MR for further characterization. Electronically signed by Jarvis Bennett 01-22-2025 6:08 PM ECG Additional Comments: ECG revealed atrial fibrillation with RVR at 121 bpm; QTc 441 Repeat EKG shortly thereafter revealed NSR at 68 bpm Code Status & VTE Plan Code Status Full code VTE Prophylaxis Plan VTE Prophylaxis will be ordered: Yes Supervising Physician Co-Signing Physician Notes Attending Attestation & Admission Note: Pt seen/examined, chart reviewed, admit care plan d/w GHAZALA Jacosb. I agree with the mcgowan components of his admission documentation. 64yo female with asthma, migraines, anxiety, and depression. Presented with nausea, vomiting, intermittent cold chills, and epigastric pain that woke her up from sleep early this morning. Symptoms lasted all day and ultimately she went to an urgent care for evaluation. While at the urgent care she was noted to be jaundiced and they advised going to the ER. Upon presentation to [facility] she underwent RUQ u/s that showed CBD dilatation (11mm) as well as gallstones. LFTs were all elevated with t.bili >6 and d.bili of 4.4. Lipase was elevated at 1122. At time of admission there was heavy concern for choledocholithiasis in addition to gallstone pancreatitis. In addition to the above she was in rapid a.fib upon ED presentation with rates 120s to 140s at peak. Rapid a.fib self-resolved even prior to admission to the tele unit. PMH/PSH/allergies/meds/sochx - reviewed vitals stable, afebrile gen - looks unwell, dehydrated appearing, perfusion looks poor mouth - MM very dry neck - no JVD heart - RRR, s1 s2, no murmur lungs - CTA b/l abd - very tender RUQ/epigastric region, no rebound, BS+, no HSM ext - no edema, pulses 2+ b/l labs reviewed all imaging reviewed EKG - rapid a.fib, V4-V6 minimal ST depression A/P: 1. gallstone pancreatitis 2. suspected choledocholithiasis 3. rapid a.fib 4. gallstones -NPO, IVF, IV antibiotics (in the event she has early cholangitis), IV pain meds, anti-emetics -MRCP -GI consultation for consideration of ERCP due to #2 -send blood cx's x 2 sets due to chills, etc -a.fib - already back in NSR -TSH was normal in August 2024; defer on recheck -echo needed -CHADS-VASc score is low -- may not need any anticoagulation moving forward -tele -gen surg consult for consideration of lap venita later in the stay? Jerry Olivas MD PG Care Time/CCT Total # of Minutes Spent Total Time Spent with Patient: Total time spent is greater than 50% in coordination of care (as documented) at patient's floor/unit and/or counseling patient: Coding [place] [address] INT INP/OBS CARE 3/75MIN Patient Type Established Medical Decision Making High Complexity Diagnoses Gallstone pancreatitis K85.10 Hypokalemia E87.6 Atrial fibrillation with RVR I48.91
--- NOTE | 2025-01-22 17:48 | XRay Report ---
EXAM: Portable AP chest and AP supine and upright abdominal radiographs TECHNIQUE: AP portable radiograph of the chest and AP supine and upright abdominal radiographs were obtained. INDICATION: Pain Comparison: Chest radiograph November 02, 2023 FINDINGS: LINES and TUBES: None CARDIOVASCULAR: Cardiac silhouette is stably and mildly enlarged. LUNGS/PLEURA: Mild pulmonary vascular congestion is similar. Patchy left retrocardiac densities may represent atelectasis or mild pneumonia. No significant pleural fluid. No discernible pneumothorax. ABDOMEN: Nonobstructive bowel gas pattern. No radiographic evidence of free air. OSSEOUS/OTHER: No displaced acute osseous process identified. IMPRESSION: Nonobstructive bowel gas pattern. No radiographic evidence of free air. Similar mild congestive changes of the cardiovascular system to the previous examination Patchy left retrocardiac densities may represent atelectasis or mild pneumonia. Electronically signed by Americo Song 01-22-2025 5:47 PM
--- NOTE | 2025-01-22 18:10 | Emergency Department Note ---
History of Present Illness General Chief complaint: Illness Stated complaint: NAUSEA, VOMITING, ABD PAIN, JAUNDICE Time Seen by Provider: 01/22/25 15:05 History of Present Illness Provider Complaint: + nausea, + vomiting, + diarrhea and + abdominal pain Onset (ago): hour(s) (13) Description of Vomiting: no bilious, no blood-streaked, no bloody or no coffee grounds Description of Diarrhea: no mucousy, no tarry, no blood-streaked or no bloody (bright red) Associated Abdominal Pain: Yes Location of pain: + epigastric Severity: moderate Maximum Pain Intensity: 7 Current Pain Intensity: 7 Quality: + stabbing and + sharp Pain Consistency: + intermittent Relieved By: + none Exacerbated By: + none Context: no foreign travel, no possible food poisoning, no recent antibiotic use, no alcohol abuse, no trauma, no NSAID use, no self induced, no smoking or no marijuana use Associated symptoms: no chest pain, no cough, no headaches, no shortness of breath, no syncope or no altered mental status Home Medications Medication Instructions Recorded Confirmed Type bupropion HCl 300 mg 24 hr tablet, 300 mg PO HS #30 tabs 12/13/18 01/22/25 History extended release diphenhydramine HCl 25 mg tablet 25 mg PO DAILY PRN Allergy Symptoms 12/13/18 01/22/25 History duloxetine 60 mg capsule,delayed 60 mg PO HS 12/13/18 01/22/25 History release loratadine 10 mg tablet 10 mg PO DAILY #90 tabs 12/13/18 01/22/25 History albuterol sulfate 90 mcg/actuation 2 puff inhalation .Q4-6H PRN 01/22/25 01/22/25 History aerosol inhaler Shortness Of Breath Or Wheezing aspirin 81 mg tablet,delayed 81 mg PO DAILY 01/22/25 01/22/25 History release famotidine 20 mg tablet 20 mg PO DAILY 01/22/25 01/22/25 History fluticasone propionate 50 2 spray intranasal BID 01/22/25 01/22/25 History mcg/actuation nasal spray,suspension loperamide 2 mg tablet (Imodium 2 mg PO DIRECTED PRN Diarrhea 01/22/25 01/22/25 History A-D) magnesium oxide 1,000 mg PO DAILY PRN LEG CRAMPS 01/22/25 01/22/25 History sumatriptan succinate 100 mg tablet 100 mg PO .COMPLEX PRN Migraine 01/22/25 01/22/25 History Headache Allergies Allergy/AdvReac Type Severity Reaction Status Date / Time quinine Allergy Severe Throat Verified 01/22/25 16:12 swelling theophylline Allergy Intermediate Rash Verified 01/22/25 16:12 Past Med/Surg History Problem List (Updated 01/22/25 @ 18:45 by Marco A Jacobs PA-C) Atrial fibrillation with RVR Hypokalemia Gallstone pancreatitis (Acute) Family history of colon cancer in father Status post left knee replacement (~11/2023) Primary osteoarthritis of left knee CMC arthritis, thumb, degenerative Medical History Degenerative arthritis Left knee DJD Hypercholesteremia Diet controlled Arthritis Allergic rhinitis Migraine Depression Seasonal allergies Surgical History History of total left knee replacement Hx of colonoscopy S/P section Family History Mother Diabetes Father Diabetes Hypertension Colon cancer Denies family history of Ovarian cancer Prostate cancer Myocardial infarction Breast cancer Social History Smoking Status: Never smoker Second Hand Exposure: No; Do You Dip or Chew Tobacco: No; Hx Alcohol Use: Yes Hx Substance Use: No Preferred Language: Icelandic Communication Ability: Effective 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 Beliefs That Will Affect Care: None marital status: Current Living Situation: Spouse current occupational status: employed current occupation: [employer] Feels Safe at Home: Yes Childhood Exposure to Second-Hand Smoke: No Dental Care, Regularly: No Physical Activity Frequency: 3-4 Times per Week Seatbelt Use: always Sunscreen Use: Yes Assistive Devices: Walker Physical Exam 2 Vital Signs: Vital Signs - 24 hr 01/22/25 14:48 01/22/25 15:01 01/22/25 15:42 Temperature 36.3 C L Temperature Source Temporal Artery Sc an Pulse Rate 69 71 Pulse Rate [Apical ] 67 Pulse Rhythm [Apic al] Respiratory Rate 18 14 Respiratory Effort / Characteristics Non-Labored Sponta neous Respiratory Depth Normal Respiratory Patter n Regular Blood Pressure 176/89 H Blood Pressure [Le ft Arm] Blood Pressure [Ri ght Arm] 174/81 H Blood Pressure Linsey n 118 Blood Pressure Linsey n [Left Arm] Blood Pressure Linsey n [Right Arm] 112 Pulse Oximetry 97 Oxygen Delivery Me thod Room Air Sepsis Recent Feve r Within 48 Hours No Sepsis New/Unexpla ined Change in Men jonnie Status N/A Sepsis Action Take n by Nursing No Action Required 01/22/25 16:04 01/22/25 16:10 01/22/25 16:13 Temperature Temperature Source Pulse Rate 150 H Pulse Rate [Apical ] 126 H Pulse Rhythm [Apic al] Irregular Respiratory Rate 23 Respiratory Effort / Characteristics Respiratory Depth Respiratory Patter n Blood Pressure Blood Pressure [Le ft Arm] 160/102 H Blood Pressure [Ri ght Arm] Blood Pressure Linsey n Blood Pressure Linsey n [Left Arm] 121 Blood Pressure Linsey n [Right Arm] Pulse Oximetry 97 Oxygen Delivery Me thod Room Air Room Air Sepsis Recent Feve r Within 48 Hours Sepsis New/Unexpla ined Change in Men jonnie Status Sepsis Action Take n by Nursing 01/22/25 16:25 01/22/25 17:20 01/22/25 18:19 Temperature Temperature Source Pulse Rate Pulse Rate [Apical ] 69 71 61 Pulse Rhythm [Apic al] Respiratory Rate 24 22 18 Respiratory Effort / Characteristics Respiratory Depth Respiratory Patter n Blood Pressure Blood Pressure [Le ft Arm] 159/81 H 137/82 Blood Pressure [Ri ght Arm] Blood Pressure Linsey n Blood Pressure Linsey n [Left Arm] 107 100 Blood Pressure Linsey n [Right Arm] Pulse Oximetry 98 97 97 Oxygen Delivery Me thod Room Air Room Air Room Air Sepsis Recent Feve r Within 48 Hours Sepsis New/Unexpla ined Change in Men jonnie Status Sepsis Action Take n by Nursing 01/22/25 18:26 Temperature Temperature Source Pulse Rate 67 Pulse Rate [Apical ] Pulse Rhythm [Apic al] Respiratory Rate Respiratory Effort / Characteristics Respiratory Depth Respiratory Patter n Blood Pressure Blood Pressure [Le ft Arm] Blood Pressure [Ri ght Arm] Blood Pressure Linsey n Blood Pressure Linsey n [Left Arm] Blood Pressure Linsey n [Right Arm] Pulse Oximetry Oxygen Delivery Me thod Sepsis Recent Feve r Within 48 Hours Sepsis New/Unexpla ined Change in Men jonnie Status Sepsis Action Take n by Nursing Physical Exam: Physical Exam GENERAL: oriented to person, place, and time. appears well-developed and well- nourished. She does not appear distressed. HENT: Exam performed. -Head: Normocephalic and atraumatic. -Right Ear: External ear normal. No mastoid erythema -Left Ear: External ear normal. No mastoid erythema -Mouth/Throat: The oropharynx is clear and moist. No trismus in the jaw. No dental abscesses or uvula swelling. No oropharyngeal exudate or tonsillar abscesses. EYES: Bilateral scleral icterus. NECK: Normal range of motion. Neck supple. No JVD present. No tracheal deviation and normal range of motion present. CV: Normal rate, regular rhythm, normal heart sounds and intact distal pulses. There is no peripheral edema. Palpable radial pulses bue. PULM/CHEST: Effort normal and breath sounds normal. No respiratory distress. No stridor. no wheezes.no rales. -Chest Wall: no tenderness to palpation ABD: The abdomen is soft. Bowel sounds are normal. no distension. No mass is present. There is tenderness to palpation of the epigastric area. There is no rebound, no guarding, no Oconnell's sign and no tenderness at McBurney's point. Rovsig negative MUSC/SKEL: Normal range of motion. There is no peripheral edema, tenderness or deformity. NEURO: Motor and sensation grossly intact. SKIN: Skin is warm and dry. not diaphoretic. PSYCH: normal mood and affect. Behavior is normal. Judgment and thought content normal. Course Course 1505: The patient was evaluated in room B11. A complete history and physical exam was performed Cardiac monitoring: An order was placed for continuous cardiac monitoring. The monitor shows a rate of 100 with sinus arhythmia interpreted by me 1814: Vital signs stable. Labs show a lipase greater than 1000. White blood cell count 10.29 hemoglobin 12.5 coagulation studies are unremarkable. Total bilirubin 6.5 direct bilirubin 4.4 AST 350 ALT 785 alkaline phosphatase 162. Acute abdominal series viewed by me as unremarkable. Gallbladder ultrasound viewed by in shows gallstones. Discussed the case with medicine JUDY and Dr. Olivas. Patient most likely has gallstone pancreatitis and will need MRCP and possible ERCP. GI Dr. Ash is scheduled to be on tomorrow according to the GI on-call schedule on the homepage. Patient will be admitted and be evaluated by GI tomorrow. Administered Medications Sodium Chloride (Nss) 1,000 mls @ 125 mls/hr IV .Q8H ARI Stop: 01/25/25 16:59 Last Admin: 01/22/25 17:25 Dose: 125 mls/hr Documented By: IVAN Discontinued Medications Sodium Chloride (Nss) 1,000 mls @ 999 mls/hr IV .Q1H1M ONE Stop: 01/22/25 16:09 Last Infusion: 01/22/25 16:47 Dose: Infused Documented By: Admin: 01/22/25 15:30 Dose: 999 mls/hr Documented By: IVAN Morphine Sulfate (Morphine Sulfate 4 Mg/Ml 1 Ml Carp\Vial) 4 mg IV NOW STA Stop: 01/22/25 17:27 Last Admin: 01/22/25 17:30 Dose: 4 mg Documented By: IVAN Ondansetron HCl (Ondansetron Inj 2 Mg/Ml 2 Ml Vial) 4 mg IV NOW STA Stop: 01/22/25 16:16 Last Admin: 01/22/25 16:17 Dose: 4 mg Documented By: IVAN Medical Decision Making Laboratory Data Attestation: I reviewed the patient's lab results. 01/22/25 15:30 01/22/25 15:30 Lab Results 01/22/25 01/22/25 Range/Units 15:30 17:20 WBC 10.29 (4.8-10.8) K/ul RBC 4.00 L (4.20-5.40) M/uL Hgb 12.5 (12.0-16.0) g/dl Hct 37.5 (37.0-47.0) % MCV 93.8 (80.0-100.0) fL MCH 31.3 (25.0-34.0) pg MCHC 33.3 (32.0-36.0) g/dL RDW Std Deviation 47.2 H (36.4-46.3) fL RDW Coeff of Jagruti 13.7 (11.5-14.5) % Plt Count 253 (130-400) K/uL MPV 10.7 (9.4-12.4) fL Immature Gran % (Auto) 0.6 % Neut % (Auto) 85.7 % Lymph % (Auto) 8.9 % [place] % (Auto) 4.1 % Eos % (Auto) 0.1 % Baso % (Auto) 0.6 % Neut # (Auto) 8.82 H (1.40-6.50) K/uL Lymph # (Auto) 0.92 L (1.20-3.40) K/uL [place] # (Auto) 0.42 (0.11-0.59) K/uL Eos # (Auto) 0.01 (0.00-0.50) K/uL Baso # (Auto) 0.06 (0.00-0.20) K/uL Immature Gran # (Auto) 0.06 (0.01-0.20) K/uL PT 10.1 (9.0-12.0) Seconds INR 0.9 (0.9-1.1) APTT 22 (21-31) Seconds PTT Ratio 0.8 Sodium 138 (136-145) mmol/L Potassium 3.0 L (3.5-5.1) mmol/L Chloride 104 (98-107) mmol/L Carbon Dioxide 26 (21-32) mmol/L Anion Gap 8 (3-11) BUN 12 (6-23) mg/dl Creatinine 0.62 (0.6-1.2) mg/dl Est Cr Clr Drug Dosing 104.1 ml/min eGFR 100.00 BUN/Creatinine Ratio 19.4 (10-20) Glucose 121 H (70-99(Fasting)) mg/dl Calcium 9.3 (8.6-10.3) mg/dl Magnesium 1.8 (1.7-2.4) mg/dl Total Bilirubin 6.5 H (0.2-1.0) mg/dl Direct Bilirubin 4.4 H (0-0.2) mg/dl AST 350 H (13-39) U/L ALT 785 H (7-52) U/L Alkaline Phosphatase 162 H (34-104) U/L Total Protein 7.2 (6.0-8.3) gm/dl Albumin 4.1 (3.4-5.0) gm/dl Lipase 1122 H (11-82) U/L Urine Color Dark Yellow Urine Appearance Clear (Clear) Urine pH 6.0 (4.5-7.5) Ur Specific [place] 1.015 (1.000-1.030) Urine Protein Negative (Negative) Urine Glucose (UA) Negative (Negative) Urine Ketones 2+ H (Negative) Urine Blood 1+ H (Negative) Urine Nitrite Negative (Negative) Urine Bilirubin 1+ H (Negative) Urine Urobilinogen Negative (Negative) Ur Leukocyte Esterase Negative (Negative) Urine WBC (Auto) 0-5 (0-5) /hpf Urine RBC (Auto) 6-10 H (0-2) /hpf U Hyaline Cast (Auto) 0-2 (0-2) /lpf U Epithel Cells (Auto) 0-2 (0-2) /hpf Urine Bacteria (Auto) None Seen (None Seen) Urine Comment Imaging Data Attestation: I personally reviewed and interpreted this imaging study as follows: My Impression: Acute abdominal series: Chest x-ray negative. Airway clear. No pneumothorax. No consolidation. No cardiomegaly or cephalization.. No free air under the diaphragm. No fractures of the skeletal structures. Nonspecific bowel gas pattern. No air-fluid levels. Ultrasound gallbladder: Gallstones present Radiologist's Impression: Chest/Abdomen X-ray 01/22/25 15:30 EXAM: Portable AP chest and AP supine and upright abdominal radiographs TECHNIQUE: AP portable radiograph of the chest and AP supine and upright abdominal radiographs were obtained. INDICATION: Pain Comparison: Chest radiograph November 02, 2023 FINDINGS: LINES and TUBES: None CARDIOVASCULAR: Cardiac silhouette is stably and mildly enlarged. LUNGS/PLEURA: Mild pulmonary vascular congestion is similar. Patchy left retrocardiac densities may represent atelectasis or mild pneumonia. No significant pleural fluid. No discernible pneumothorax. ABDOMEN: Nonobstructive bowel gas pattern. No radiographic evidence of free air. OSSEOUS/OTHER: No displaced acute osseous process identified. IMPRESSION: Nonobstructive bowel gas pattern. No radiographic evidence of free air. Similar mild congestive changes of the cardiovascular system to the previous examination Patchy left retrocardiac densities may represent atelectasis or mild pneumonia. Electronically signed by Americo Song 01-22-2025 5:47 PM Gallbladder Ultrasound 01/22/25 15:30 Exam: Right upper quadrant ultrasound. History: Right upper quadrant pain. Emesis. Comparison:None. Findings: Included pancreas is within normal limits. Detail is limited. Pancreatic duct 3 mm. This is upper limits of normal. Mild intrahepatic ductal dilatation. Liver demonstrates no mass with normal echotexture. Portal vein is patent with normal directional flow. Gallbladder is moderately distended without wall thickening or pericholecystic fluid. Intraluminal echo consistent with small stone. Common duct measures 1.1 cm diameter. No choledocholithiasis. Right kidney measures 10.5 cm in length. Normal echotexture without stone, mass or hydronephrosis. Impression: 1. Prominent distended gallbladder with uncomplicated cholelithiasis. 2. Prominent intrahepatic ducts and increased caliber common duct. No choledocholithiasis or pancreatic head mass. Etiology uncertain. Recommend CT or MR for further characterization. Electronically signed by Jarvis Bennett 01-22-2025 6:08 PM ECG Data Attestation: I personally reviewed and interpreted this ECG as follows: Additional Comments: EKG #1 at 1612: Sinus arrhythmia with a rate of 120. TN 124 QRS [address] elevation or ST depression. EKG #2 at 1817: Sinus rhythm with a rate of 68. TN QRS and QTc intervals within normal limits. No ST elevation or ST depression. [facility] Narrative 1505: The patient was evaluated in room B11. A complete history and physical exam was performed Cardiac monitoring: An order was placed for continuous cardiac monitoring. The monitor shows a rate of 100 with sinus arhythmia interpreted by me 1814: Vital signs stable. Labs show a lipase greater than 1000. White blood cell count 10.29 hemoglobin 12.5 coagulation studies are unremarkable. Total bilirubin 6.5 direct bilirubin 4.4 AST 350 ALT 785 alkaline phosphatase 162. Acute abdominal series viewed by me as unremarkable. Gallbladder ultrasound viewed by me shows gallstones. Discussed the case with medicine JUDY and Dr. Olivas. Patient most likely has gallstone pancreatitis and will need MRCP and possible ERCP. GI Dr. Ash is scheduled to be on tomorrow according to the GI on-call schedule on the homepage. Patient will be admitted and be evaluated by GI tomorrow. Impression & Plan Gallstone pancreatitis Discharge Plan Visit Data Chief Complaint: Illness Stated Complaint: NAUSEA, VOMITING, ABD PAIN, JAUNDICE ED Provider: Kobi Izquierdo Discharge Problem: Gallstone pancreatitis Patient Disposition: Admitted As Inpatient Condition: Fair Forms Stand Alone Forms: [facility] Prescriptions Prescriptions: No Action loratadine 10 mg tablet 10 mg PO DAILY Qty: 90 duloxetine 60 mg capsule,delayed release(DR/EC) 60 mg PO HS bupropion HCl 300 mg tablet extended release 24 hr 300 mg PO HS Qty: 30 diphenhydramine HCl 25 mg tablet 25 mg PO DAILY PRN (Reason: Allergy Symptoms) loperamide [Imodium A-D] 2 mg Tablet 2 mg PO DIRECTED PRN (Reason: Diarrhea) aspirin 81 mg Tablet,Delayed Release (Dr/Ec) 81 mg PO DAILY famotidine 20 mg Tablet 20 mg PO DAILY Rx Instructions: HAD EMESIS AFTER TAKING magnesium oxide 500 mg magnesium Tablet 1,000 mg PO DAILY PRN (Reason: LEG CRAMPS) albuterol sulfate 90 mcg/actuation HFA aerosol inhaler 2 puff INHALATION .Q4-6H PRN (Reason: Shortness Of Breath Or Wheezing) fluticasone propionate [Flonase] 50 mcg/actuation [place],Suspension 2 spray INTRANASAL BID Rx Instructions: administer into each nostril sumatriptan succinate 100 mg tablet 100 mg PO .COMPLEX PRN (Reason: Migraine Headache) Rx Instructions: 100 mg PO TAKE 1 TABLET FOR MIGRAINER RELIEF. MAY REPEAT 2 HOURS LATER. MAXIMUM 200MG/DAY; Referrals Referrals: ProDennis MD [Primary Care Provider] -
[2025-01-22 18:26] LABS: Magnesium 1.8 mg/dl (1.7-2.4)
[2025-01-22] MEDS: FAMOTIDINE 20MG IV PUSH 20 MG/5 ML SYR IV STA (19:14)
[2025-01-22] MEDS: POTASSIUM CHLORIDE / WTR 10 MEQ/100 ML PLCT IV SCH (19:14)
[2025-01-22] MEDS: MAGNESIUM SULFATE / D5W 1 GM/100 ML BAG IV ONE (19:14)
--- NOTE | 2025-01-22 20:51 | Magnetic Resonance Report ---
HISTORY: Suspected gallstone pancreatitis. Vomiting since 2 AM. TECHNIQUE: MRI of the abdomen utilizing an MRCP protocol. Rotating 3D MIP reconstructions are provided. COMPARISON: None FINDINGS: Distended gallbladder. Small volume of pericholecystic fluid. No visible gallstones. Severe intrahepatic biliary ductal dilation involving both hepatic lobes. The common bile duct is dilated measuring 1.8 cm in diameter. A small filling defect Is seen in the posterior common bile duct on series 3 image 19 and series 2 image 16 measuring 0.7 x 0.3 cm, which could represent choledocholithiasis or debris. There is abrupt caliber change at the level of the pancreatic head and sphincter of Oddi without visible obstructing stone.The main pancreatic duct is mildly dilated measuring 0.3 cm in diameter. No obvious pancreatic mass is appreciated, but evaluation of the pancreas is limited by MRCP protocol. The liver parenchyma is otherwise unremarkable. The spleen, adrenal glands, and kidneys are unremarkable. The included small and large bowel loops are normal in caliber. No abdominal aortic aneurysm. No ascites or pneumoperitoneum. The lung bases are clear. The soft tissues of the body wall are unremarkable. No acute osseous abnormality. IMPRESSION: * Distended gallbladder with trace pericholecystic fluid and no visible gallstones. Severe intra and extrahepatic biliary ductal dilation. Common bile duct measuring up to 1.8 cm in diameter. A small nonobstructing filling defect along the posterior aspect of the mid common bile duct measuring 0.7 x 0.3 cm on series 3 image 19 and series 2 image 16 could represent choledocholithiasis, debris, or artifact. There is caliber change in the common bile duct at the level of the pancreatic head/sphincter of Oddi without visible obstructing stone or obvious mass. Given severe biliary dilation and no definite obstructing stone, further evaluation is recommended with ERCP and/or contrast-enhanced pancreatic mass protocol abdominal MRI to exclude the possibility of stricture or occult pancreatic head mass. * Mildly dilated pancreatic duct measuring 0.3 cm in diameter. * Additional chronic and/or incidental findings as above . ACT 112: Positive. There are findings on this exam that require communication between the performing entity and the patient following Patient Test Result Information Act ([place] ACT 112) guidelines. Electronically signed by Mohan Storm 01-22-2025 8:50 PM
[2025-01-22] MEDS: AMPICILLIN/SULBACTAM SOD 3,000 MG/100 ML BAG IV ONE (21:13)
[2025-01-22] MEDS ORDERED: ONDANSETRON INJ 2 MG/ML 2 ML VIAL IV PRN (22:18)
[2025-01-22] MEDS ORDERED: ALBUTEROL HFA 8 GM INHALER INH PRN (22:18)
[2025-01-22] MEDS: LACTATED RINGER'S 1,000 ML IV SCH (22:57)
[2025-01-22] MEDS: HYDROmorphone INJ 1 MG/ML SYRINGE IV PRN (22:57)
[2025-01-22] MEDS: FLUTICASONE PROPIONATE NA SPR 16 GM BTL SCH (22:58)
[2025-01-23] MEDS: AMPICILLIN/SULBACTAM SOD 3,000 MG/100 ML BAG IV SCH (03:03)
[2025-01-23 06:28] LABS: Hematocrit (blood only) 33.8 % (37.0-47.0); Hemoglobin 11.6 g/dl (12.0-16.0); Immature Granulocytes # (auto) 0.04 K/uL (0.01-0.20); Immature Granulocytes % (auto) 0.3 %; Mean Corpuscular Hemoglobin 31.7 pg (25.0-34.0); Mean Corpuscular Volume 92.3 fL (80.0-100.0); Platelet Count 244 K/uL (130-400); RDW Standard Deviation 47.5 fL (36.4-46.3); Red Blood Count 3.66 M/uL (4.20-5.40); White Blood Count 12.77 K/ul (4.8-10.8)
[2025-01-23 07:14] LABS: Alanine Aminotransferase 676.0 U/L (7-52); Albumin Globulin Ratio 1.5 (0.9-2); Albumin Level 3.7 gm/dl (3.4-5.0); Alkaline Phosphatase 147.0 U/L (34-104); Anion Gap 6.0 (3-11); Bilirubin,Total 2.8 mg/dl (0.2-1.0); Blood Urea Nitrogen 8.0 mg/dl (6-23); Calcium 8.9 mg/dl (8.6-10.3); Carbon Dioxide 27.0 mmol/L (21-32); Chloride 105.0 mmol/L (98-107); Creatinine Clr Calc Pharmacy 125.1 ml/min; Globulin 2.5 gm/dl (2.5-4.0); Glucose 103.0 mg/dl (70-99(Fasting)); Magnesium 1.8 mg/dl (1.7-2.4); Potassium 3.3 mmol/L (3.5-5.1); Sodium 138.0 mmol/L (136-145); Total Protein 6.2 gm/dl (6.0-8.3)
[2025-01-23 07:58] LABS: Lipase 220.0 U/L (11-82)
[2025-01-23] MEDS: FAMOTIDINE 20MG IV PUSH 20 MG/5 ML SYR IV SCH (08:06)
[2025-01-23] MEDS: ASPIRIN 81 MG ECTAB PO SCH (08:06)
[2025-01-23] MEDS: LORATADINE 10 MG TAB PO SCH (08:06)
--- NOTE | 2025-01-23 08:23 | Gastrointestinal Consultation ---
Date of Consultation January 23, 2025 Assessment & Plan (1) Gallstone pancreatitis: Clinical picture consistent with gallstone pancreatitis. Clinically improving. MRI and liver enzymes consistent with choledocholithiasis. Will plan for ERCP in AM. Continue IV antibiotics. Ultimate cholecystectomy. History of Present Illness Reason for Consultation: Gallstone pancreatitis Attending Physician: Jerry Olivas MD History of Present Illness Patient was in usual state of good health until 1 day prior to admission suddenly awoke with severe epigastric pain nausea and vomiting. No prior history of symptoms like this. No prior GI illnesses. On presentation she had an elevated lipase and abnormal liver enzymes. Admitted for presumed gallstone pancreatitis. Prior hysterectomy no other abdominal surgery or any other significant GI illnesses. Clinically improved today with no significant abdominal pain. No fever or chills. Allergies Allergy/AdvReac Type Severity Reaction Status Date / Time quinine Allergy Severe Throat Verified 01/22/25 16:12 swelling theophylline Allergy Intermediate Rash Verified 01/22/25 16:12 Home Medications Medication Instructions Recorded Confirmed Type bupropion HCl 300 mg 24 hr tablet, 300 mg PO HS #30 tabs 12/13/18 01/22/25 History extended release diphenhydramine HCl 25 mg tablet 25 mg PO DAILY PRN Allergy Symptoms 12/13/18 01/22/25 History duloxetine 60 mg capsule,delayed 60 mg PO HS 12/13/18 01/22/25 History release loratadine 10 mg tablet 10 mg PO DAILY #90 tabs 12/13/18 01/22/25 History albuterol sulfate 90 mcg/actuation 2 puff inhalation .Q4-6H PRN 01/22/25 01/22/25 History aerosol inhaler Shortness Of Breath Or Wheezing aspirin 81 mg tablet,delayed 81 mg PO DAILY 01/22/25 01/22/25 History release famotidine 20 mg tablet 20 mg PO DAILY 01/22/25 01/22/25 History fluticasone propionate 50 2 spray intranasal BID 01/22/25 01/22/25 History mcg/actuation nasal spray,suspension loperamide 2 mg tablet (Imodium 2 mg PO DIRECTED PRN Diarrhea 01/22/25 01/22/25 History A-D) magnesium oxide 1,000 mg PO DAILY PRN LEG CRAMPS 01/22/25 01/22/25 History sumatriptan succinate 100 mg tablet 100 mg PO .COMPLEX PRN Migraine 01/22/25 01/22/25 History Headache Patient History Medical History Degenerative arthritis Left knee DJD Hypercholesteremia Diet controlled Arthritis Allergic rhinitis Migraine Depression Seasonal allergies Surgical History History of total left knee replacement Hx of colonoscopy S/P section Family History Mother Diabetes Father Diabetes Hypertension Colon cancer Denies family history of Ovarian cancer Prostate cancer Myocardial infarction Breast cancer Social History Smoking Status: Never smoker Second Hand Exposure: No; Do You Dip or Chew Tobacco: No; Hx Alcohol Use: Yes Alcohol type: beer, wine and hard liquor Hx Substance Use: No Preferred Language: [place] Leone[place] Communication Ability: Effective Sulky Driver Required: No Beliefs That Will Affect Care: None marital status: Current Living Situation: Spouse current occupational status: employed current occupation: [employer] Other Information That Helps Us Care for You: No Feels Safe at Home: Yes Safety Concerns: Feels Safe At This Time Childhood Exposure to Second-Hand Smoke: No Dental Care, Regularly: No Physical Activity Frequency: 3-4 Times per Week Seatbelt Use: always Sunscreen Use: Yes Assistive Devices: Glasses Review of Systems Review of Systems: No fever No chills No SOB No CP Physical Exam Physical Exam: Eyes; anicteric HENT No masses Chest clear to A Cor S1, S2 physiologic Abd: softer nontender no masses Ext no edema Results & Data Vital Signs (Past 12 Hours) Vital Signs Temp Pulse Pulse Resp BP BP Pulse Ox 01/23/25 06:48 76 01/23/25 03:56 36.6 C 77 20 149/73 H 96 01/22/25 22:58 65 01/22/25 22:06 37.4 C 73 16 156/78 H 95 01/22/25 21:52 75 20 154/73 H 95 01/22/25 21:36 64 17 95 01/22/25 21:30 154/73 H 01/22/25 21:18 61 18 95 01/22/25 21:00 152/79 H 01/22/25 21:00 152/79 H 01/22/25 20:57 64 18 97 01/22/25 20:33 61 16 94 01/22/25 20:30 155/77 H 01/22/25 20:30 155/77 H 01/22/25 20:24 157/76 H 01/22/25 20:24 157/76 H 01/22/25 20:24 157/76 H O2 Del Method 01/23/25 06:48 01/23/25 03:56 Room Air 01/22/25 22:58 01/22/25 22:06 Room Air 01/22/25 21:52 Room Air 01/22/25 21:36 01/22/25 21:30 01/22/25 21:18 01/22/25 21:00 01/22/25 21:00 01/22/25 20:57 01/22/25 20:33 01/22/25 20:30 01/22/25 20:30 01/22/25 20:24 01/22/25 20:24 01/22/25 20:24 Laboratory Results Laboratory Results - last 48 hr 01/22/25 01/22/25 01/22/25 15:30 17:20 19:31 WBC 10.29 RBC 4.00 L Hgb 12.5 Hct 37.5 MCV 93.8 MCH 31.3 MCHC 33.3 RDW Std Deviation 47.2 H RDW Coeff of Jagruti 13.7 Plt Count 253 MPV 10.7 Immature Gran % (Auto) 0.6 Neut % (Auto) 85.7 Lymph % (Auto) 8.9 [place] % (Auto) 4.1 Eos % (Auto) 0.1 Baso % (Auto) 0.6 Neut # (Auto) 8.82 H Lymph # (Auto) 0.92 L [place] # (Auto) 0.42 Eos # (Auto) 0.01 Baso # (Auto) 0.06 Immature Gran # (Auto) 0.06 PT 10.1 INR 0.9 APTT 22 PTT Ratio 0.8 Sodium 138 Potassium 3.0 L Chloride 104 Carbon Dioxide 26 Anion Gap 8 BUN 12 Creatinine 0.62 Est Cr Clr Drug Dosing 104.1 eGFR 100.00 BUN/Creatinine Ratio 19.4 Glucose 121 H Calcium 9.3 Magnesium 1.8 Total Bilirubin 6.5 H Direct Bilirubin 4.4 H AST 350 H ALT 785 H Alkaline Phosphatase 162 H Troponin I High Sens 14.0 Total Protein 7.2 Albumin 4.1 Globulin Albumin/Globulin Ratio Lipase 1122 H Urine Color Dark Yellow Urine Appearance Clear Urine pH 6.0 Ur Specific [place] 1.015 Urine Protein Negative Urine Glucose (UA) Negative Urine Ketones 2+ H Urine Blood 1+ H Urine Nitrite Negative Urine Bilirubin 1+ H Urine Urobilinogen Negative Ur Leukocyte Esterase Negative Urine WBC (Auto) 0-5 Urine RBC (Auto) 6-10 H U Hyaline Cast (Auto) 0-2 U Epithel Cells (Auto) 0-2 Urine Bacteria (Auto) None Seen Urine Comment 01/23/25 05:44 WBC 12.77 H RBC 3.66 L Hgb 11.6 L Hct 33.8 L MCV 92.3 MCH 31.7 MCHC 34.3 RDW Std Deviation 47.5 H RDW Coeff of Jagruti 14.0 Plt Count 244 MPV 10.8 Immature Gran % (Auto) 0.3 Neut % (Auto) 79.4 Lymph % (Auto) 9.9 [place] % (Auto) 9.9 Eos % (Auto) 0.1 Baso % (Auto) 0.4 Neut # (Auto) 10.13 H Lymph # (Auto) 1.27 [place] # (Auto) 1.27 H Eos # (Auto) 0.01 Baso # (Auto) 0.05 Immature Gran # (Auto) 0.04 PT INR APTT PTT Ratio Sodium 138 Potassium 3.3 L Chloride 105 Carbon Dioxide 27 Anion Gap 6 BUN 8 Creatinine 0.52 L Est Cr Clr Drug Dosing 125.1 eGFR 104.33 BUN/Creatinine Ratio 15.4 Glucose 103 H Calcium 8.9 Magnesium 1.8 Total Bilirubin 2.8 H D Direct Bilirubin AST 272 H ALT 676 H Alkaline Phosphatase 147 H Troponin I High Sens Total Protein 6.2 Albumin 3.7 Globulin 2.5 Albumin/Globulin Ratio 1.5 Lipase 220 H Urine Color Urine Appearance Urine pH Ur Specific [place] Urine Protein Urine Glucose (UA) Urine Ketones Urine Blood Urine Nitrite Urine Bilirubin Urine Urobilinogen Ur Leukocyte Esterase Urine WBC (Auto) Urine RBC (Auto) U Hyaline Cast (Auto) U Epithel Cells (Auto) Urine Bacteria (Auto) Urine Comment Diagnostic Findings Chest/Abdomen X-ray 01/22/25 15:30 EXAM: Portable AP chest and AP supine and upright abdominal radiographs TECHNIQUE: AP portable radiograph of the chest and AP supine and upright abdominal radiographs were obtained. INDICATION: Pain Comparison: Chest radiograph November 02, 2023 FINDINGS: LINES and TUBES: None CARDIOVASCULAR: Cardiac silhouette is stably and mildly enlarged. LUNGS/PLEURA: Mild pulmonary vascular congestion is similar. Patchy left retrocardiac densities may represent atelectasis or mild pneumonia. No significant pleural fluid. No discernible pneumothorax. ABDOMEN: Nonobstructive bowel gas pattern. No radiographic evidence of free air. OSSEOUS/OTHER: No displaced acute osseous process identified. IMPRESSION: Nonobstructive bowel gas pattern. No radiographic evidence of free air. Similar mild congestive changes of the cardiovascular system to the previous examination Patchy left retrocardiac densities may represent atelectasis or mild pneumonia. Electronically signed by Americo Song 01-22-2025 5:47 PM Gallbladder Ultrasound 01/22/25 15:30 Exam: Right upper quadrant ultrasound. History: Right upper quadrant pain. Emesis. Comparison:None. Findings: Included pancreas is within normal limits. Detail is limited. Pancreatic duct 3 mm. This is upper limits of normal. Mild intrahepatic ductal dilatation. Liver demonstrates no mass with normal echotexture. Portal vein is patent with normal directional flow. Gallbladder is moderately distended without wall thickening or pericholecystic fluid. Intraluminal echo consistent with small stone. Common duct measures 1.1 cm diameter. No choledocholithiasis. Right kidney measures 10.5 cm in length. Normal echotexture without stone, mass or hydronephrosis. Impression: 1. Prominent distended gallbladder with uncomplicated cholelithiasis. 2. Prominent intrahepatic ducts and increased caliber common duct. No choledocholithiasis or pancreatic head mass. Etiology uncertain. Recommend CT or MR for further characterization. Electronically signed by Jarvis Bennett 01-22-2025 6:08 PM Cholangiopancreatography MRI 01/22/25 18:51 HISTORY: Suspected gallstone pancreatitis. Vomiting since 2 AM. TECHNIQUE: MRI of the abdomen utilizing an MRCP protocol. Rotating 3D MIP reconstructions are provided. COMPARISON: None FINDINGS: Distended gallbladder. Small volume of pericholecystic fluid. No visible gallstones. Severe intrahepatic biliary ductal dilation involving both hepatic lobes. The common bile duct is dilated measuring 1.8 cm in diameter. A small filling defect Is seen in the posterior common bile duct on series 3 image 19 and series 2 image 16 measuring 0.7 x 0.3 cm, which could represent choledocholithiasis or debris. There is abrupt caliber change at the level of the pancreatic head and sphincter of Oddi without visible obstructing stone.The main pancreatic duct is mildly dilated measuring 0.3 cm in diameter. No obvious pancreatic mass is appreciated, but evaluation of the pancreas is limited by MRCP protocol. The liver parenchyma is otherwise unremarkable. The spleen, adrenal glands, and kidneys are unremarkable. The included small and large bowel loops are normal in caliber. No abdominal aortic aneurysm. No ascites or pneumoperitoneum. The lung bases are clear. The soft tissues of the body wall are unremarkable. No acute osseous abnormality. IMPRESSION: * Distended gallbladder with trace pericholecystic fluid and no visible gallstones. Severe intra and extrahepatic biliary ductal dilation. Common bile duct measuring up to 1.8 cm in diameter. A small nonobstructing filling defect along the posterior aspect of the mid common bile duct measuring 0.7 x 0.3 cm on series 3 image 19 and series 2 image 16 could represent choledocholithiasis, debris, or artifact. There is caliber change in the common bile duct at the level of the pancreatic head/sphincter of Oddi without visible obstructing stone or obvious mass. Given severe biliary dilation and no definite obstructing stone, further evaluation is recommended with ERCP and/or contrast-enhanced pancreatic mass protocol abdominal MRI to exclude the possibility of stricture or occult pancreatic head mass. * Mildly dilated pancreatic duct measuring 0.3 cm in diameter. * Additional chronic and/or incidental findings as above . ACT 112: Positive. There are findings on this exam that require communication between the performing entity and the patient following Patient Test Result Information Act ([place] ACT 112) guidelines. Electronically signed by Mohan Storm 01-22-2025 8:50 PM PG Care Time/CCT Total # of Minutes Spent Total Time Spent with Patient: Total time spent is greater than 50% in coordination of care (as documented) at patient's floor/unit and/or counseling patient: Coding Level of Care Code 32451 INT INP/OBS CARE 3/75MIN Diagnoses Gallstone pancreatitis K85.10
[2025-01-23] MEDS: POTASSIUM CHLORIDE CRTAB 20 MEQ TABCR PO SCH (09:38)
[2025-01-23] MEDS: POTASSIUM CHLORIDE 20 MEQ in LACTATED RINGER'S 1,000 ML IV SCH (09:38)
[2025-01-23] MEDS: ACETAMINOPHEN 1,000 MG/100 ML VIAL IV PRN (11:20)
--- NOTE | 2025-01-23 11:39 | Hospitalist Progress Note ---
Date of Service January 23, 2025 Assessment & Plan (1) Gallstone pancreatitis: (2) Hypokalemia: (3) Atrial fibrillation with RVR: Plan 64-year-old female who presented on 01/22 for N/V/D. Found to have evidence of gallstone pancreatitis. #Gallstone pancreatitis - improving - -total bilirubin of 6.5 on arrival with elevated direct bili as well -other LFTs elevated -lipase 1122 at ER presentation; now 220 -abd pain essentially resolved today -GB ultrasound revealed prominent intrahepatic ducts and increased caliber of the common duct with CBD 1.1cm -MRCP showed suspected choledocholithiasis and enlarged CBD and enlarged pancreatic duct -there was also pericholecystic fluid [place] [facility] [facility] [place]; plan for ERCP tomorrow am -NPO after MN tonight -clears until then -IV unasyn to cover for possibility of cholangitis -repeat LFTs am -cont IVF but can lower fluid rate -ERCP results will dictate remainder of her stay -- lap venita later in the stay?? #Atrial fibrillation with RVR - -Brief episode of atrial fibrillation with RVR in the emergency department -Converted back to NSR shortly thereafter -low [id number] score: 1 (female; no PMH of CHF, HTN, stroke, vascular disease, or T2DM - although she is pre-DM based on a1c of 6% earlier this year) -recheck a1c while hospitalized -defer on anticoagulation in light of needing ERCP, low CHADS-VASc score, etc. -obtain baseline echo #Hypokalemia - -ongoing -replace IV & PO -repeat BMP am -mag level today wnl #Anxiety - -Continue bupropion, duloxetine #DVT proph - -defer on chemical means due to ERCP in am, etc. appreciate GI assistance Admission and Anticipated Discharge Date Admission Date: January 22, 2025 Subjective tele overnight - NSR, no a.fib had a brief run of PAT mid-morning today -- seconds in duration seen by GI - ERCP planned for 9/2 AM clears allowed by GI pt took the clears and tolerated such without any increase in abd pain or nausea she overall feels much better today no vomiting urine has lightened up denies any dyspnea or BAINS at bedside multiple questions asked by patient/pt's about plan of care, etc. Review of Systems Review of Systems: gen - no chills today cv - no chest pain, no orthopnea pulm - no dyspnea GI - abd pain resolved; +flatus Physical Exam Physical Exam: gen - NAD, looks much better today eyes - mild scleral icterus skin - mild jaundice face only (especially upper face) HENT - MMM today neck - no JVD heart - RRR, s1 s2, no murmur lungs - CTA b/l abd - soft, NT, ND, BS+; no HSM ext - no edema, pulses 2+ b/l psych - a/o x 3 Results & Data Results & Data Vital Signs (Past 12 Hours) Vital Signs Temp Pulse Pulse Resp BP Pulse Ox O2 Del Method 01/23/25 09:00 36.9 C 73 20 166/84 H 96 Room Air 01/23/25 06:48 76 01/23/25 03:56 36.6 C 77 20 149/73 H 96 Room Air Laboratory Results Laboratory Results - last 24 hr 01/23/25 05:44 WBC 12.77 H RBC 3.66 L Hgb 11.6 L Hct 33.8 L MCV 92.3 MCH 31.7 MCHC 34.3 RDW Std Deviation 47.5 H RDW Coeff of Jagruti 14.0 Plt Count 244 MPV 10.8 Immature Gran % (Auto) 0.3 Neut % (Auto) 79.4 Lymph % (Auto) 9.9 [place] % (Auto) 9.9 Eos % (Auto) 0.1 Baso % (Auto) 0.4 Neut # (Auto) 10.13 H Lymph # (Auto) 1.27 [place] # (Auto) 1.27 H Eos # (Auto) 0.01 Baso # (Auto) 0.05 Immature Gran # (Auto) 0.04 Sodium 138 Potassium 3.3 L Chloride 105 Carbon Dioxide 27 Anion Gap 6 BUN 8 Creatinine 0.52 L Est Cr Clr Drug Dosing 125.1 eGFR 104.33 BUN/Creatinine Ratio 15.4 Glucose 103 H Calcium 8.9 Magnesium 1.8 Total Bilirubin 2.8 H D AST 272 H ALT 676 H Alkaline Phosphatase 147 H Total Protein 6.2 Albumin 3.7 Globulin 2.5 Albumin/Globulin Ratio 1.5 Lipase 220 H Diagnostic Findings Microbiology 01/22/25 19:32 Blood Aerobic Blood Culture - Preliminary No growth in Aerobic bottle after 24 hours. 01/22/25 19:32 Blood Anaerobic Blood Culture - Preliminary No growth in Anaerobic bottle after 24 hours. 01/22/25 19:31 Blood Aerobic Blood Culture - Preliminary No growth in Aerobic bottle after 24 hours. 01/22/25 19:31 Blood Anaerobic Blood Culture - Preliminary No growth in Anaerobic bottle after 24 hours. PG Care Time/CCT Total # of Minutes Spent Total Time Spent with Patient: Total time spent is greater than 50% in coordination of care (as documented) at patient's floor/unit and/or counseling patient: Coding Level of Care Code 11179 SUB INP/OBS CARE 3/50MIN Diagnoses Gallstone pancreatitis K85.10 Hypokalemia E87.6 Atrial fibrillation with RVR I48.91
--- NOTE | 2025-01-23 12:41 | XCELERA ---
[id number] \\[id number]
[2025-01-23] MEDS: HYDROmorphone INJ 0.5 MG/0.5 ML SYR IV PRN (15:49)
[2025-01-24 05:15] LABS: Hematocrit (blood only) 31.8 % (37.0-47.0); Hemoglobin 10.4 g/dl (12.0-16.0); Immature Granulocytes # (auto) 0.06 K/uL (0.01-0.20); Immature Granulocytes % (auto) 0.5 %; Mean Corpuscular Hemoglobin 30.7 pg (25.0-34.0); Mean Corpuscular Volume 93.8 fL (80.0-100.0); Platelet Count 226 K/uL (130-400); RDW Standard Deviation 49.1 fL (36.4-46.3); Red Blood Count 3.39 M/uL (4.20-5.40); White Blood Count 11.99 K/ul (4.8-10.8)
[2025-01-24 05:24] LABS: Alanine Aminotransferase 493.0 U/L (7-52); Albumin Globulin Ratio 1.4 (0.9-2); Albumin Level 3.4 gm/dl (3.4-5.0); Alkaline Phosphatase 127.0 U/L (34-104); Anion Gap 5.0 (3-11); Bilirubin,Total 1.9 mg/dl (0.2-1.0); Blood Urea Nitrogen 5.0 mg/dl (6-23); Calcium 8.7 mg/dl (8.6-10.3); Carbon Dioxide 29.0 mmol/L (21-32); Chloride 105.0 mmol/L (98-107); Creatinine Clr Calc Pharmacy 125.1 ml/min; Globulin 2.4 gm/dl (2.5-4.0); Glucose 104.0 mg/dl (70-99(Fasting)); Potassium 3.2 mmol/L (3.5-5.1); Sodium 139.0 mmol/L (136-145); Total Protein 5.8 gm/dl (6.0-8.3)
[2025-01-24] MEDS: POTASSIUM CHLORIDE / WTR 10 MEQ/100 ML PLCT IV SCH (06:51)
[2025-01-24 07:51] LABS: Hemoglobin A1C 5.6 % (4.5-5.6)
[2025-01-24] MEDS: HYDROCODONE/ACETAMOPHEN 5/325MG TAB PO STA (09:15)
--- NOTE | 2025-01-24 10:19 | Gastroenterology Progress Note ---
Date of Service January 24, 2025 Assessment & Plan (1) Gallstone pancreatitis: Plan: 64 year old female with history of asthma, migraines, anxiety, and depression admitted through the ED w/ abd pain, nausea/vomiting, jaundice - workup concerning for gallstones pancreatitis CBD 1.8 cm, PD 0.3 cm w/ caliber change in the common bile duct at the level of the pancreatic head/sphincter of Oddi without visible obstructing stone or obvious mass. Her TB has been downtrending 6.5 --> 1.9 Trend LFT NPO for ERCP evaluation today Further recommendations pending review of ERCP We appreciate assistance in the management of any serological abnormality and corrections to include: hemoglobin >7, INR <2, platelets >50,000, potassium levels >3.5 but <5.3, and sodium levels within 5 points of the reference range prior to endoscopic evaluation. Admission and Anticipated Discharge Date Admission Date: January 22, 2025 Supervising Physician Co-Signing Physician Notes I saw and examined this patient with our nurse practitioner and agree with her assessment and plan. Labs consistent with high likelihood of retained CBD stone confirmed by abnormal MRI. Will proceed with ERCP. Subjective NPO for ERCP today. She has had continued bouts of upper abd pain. No na usea/vomiting. No fever, chills, CP, SOB. Tb 6.5 --> 2.8 --> 1.9 AST 350 --> 272 --> 123 ALT 785 --> 676 --> 493 ALKP 162 --> 147 -->127 Lipase 1122 --> 220 MRCP 2024: Distended gallbladder with trace pericholecystic fluid and no visible gallstones. Severe intra and extrahepatic biliary ductal dilation. Common bile duct measuring up to 1.8 cm in diameter. A small nonobstructing filling defect along the posterior aspect of the mid common bile duct measuring 0.7 x 0.3 cm on series 3 image 19 and series 2 image 16 could represent choledocholithiasis, debris, or artifact. There is caliber change in the common bile duct at the level of the pancreatic head/sphincter of Oddi without visible obstructing stone or obvious mass. Given severe biliary dilation and no definite obstructing stone, further evaluation is recommended with ERCP and/or contrast-enhanced pancreatic mass protocol abdominal MRI to exclude the possibility of stricture or occult pancreatic head mass. Mildly dilated pancreatic duct measuring 0.3 cm in diameter. ABD US 2024: Prominent distended gallbladder with uncomplicated cholelithiasis. Prominent intrahepatic ducts and increased caliber common duct. No choledocholithiasis or pancreatic head mass. Review of Systems Review of Systems: All other findings negative except as noted in HPI. Physical Exam Gastrointestinal (Abdomen): Percussion/Palpation: + abdomen tender and abdomen soft Results & Data Results & Data Vital Signs (Past 12 Hours) Vital Signs Temp Pulse Pulse Resp BP Pulse Ox O2 Del Method 01/24/25 08:50 97.2 F L 72 16 112/60 99 Room Air 01/24/25 05:47 86 01/24/25 01:59 99.0 F 82 16 137/75 94 Room Air 01/23/25 23:47 92 H 01/23/25 23:03 100.0 F H 86 18 145/76 H 94 Room Air Laboratory Results 01/24/25 Range/Units 04:21 WBC 11.99 H (4.8-10.8) K/ul RBC 3.39 L (4.20-5.40) M/uL Hgb 10.4 L (12.0-16.0) g/dl Hct 31.8 L (37.0-47.0) % MCV 93.8 (80.0-100.0) fL MCH 30.7 (25.0-34.0) pg MCHC 32.7 (32.0-36.0) g/dL RDW Std Deviation 49.1 H (36.4-46.3) fL RDW Coeff of Jagruti 14.4 (11.5-14.5) % Plt Count 226 (130-400) K/uL MPV 11.0 (9.4-12.4) fL Immature Gran % (Auto) 0.5 % Neut % (Auto) 71.5 % Lymph % (Auto) 15.1 % [place] % (Auto) 11.3 % Eos % (Auto) 1.0 % Baso % (Auto) 0.6 % Neut # (Auto) 8.58 H (1.40-6.50) K/uL Lymph # (Auto) 1.81 (1.20-3.40) K/uL [place] # (Auto) 1.35 H (0.11-0.59) K/uL Eos # (Auto) 0.12 (0.00-0.50) K/uL Baso # (Auto) 0.07 (0.00-0.20) K/uL Immature Gran # (Auto) 0.06 (0.01-0.20) K/uL Sodium 139 (136-145) mmol/L Potassium 3.2 L (3.5-5.1) mmol/L Chloride 105 (98-107) mmol/L Carbon Dioxide 29 (21-32) mmol/L Anion Gap 5 (3-11) BUN 5 L (6-23) mg/dl Creatinine 0.52 L (0.6-1.2) mg/dl Est Cr Clr Drug Dosing 125.1 ml/min eGFR 104.33 BUN/Creatinine Ratio 9.6 L (10-20) Glucose 104 H (70-99(Fasting)) mg/dl Estimat Average Glucose 114 mg/dl Hemoglobin A1c 5.6 (4.5-5.6) % Calcium 8.7 (8.6-10.3) mg/dl Total Bilirubin 1.9 H (0.2-1.0) mg/dl AST 123 H (13-39) U/L ALT 493 H (7-52) U/L Alkaline Phosphatase 127 H (34-104) U/L Total Protein 5.8 L (6.0-8.3) gm/dl Albumin 3.4 (3.4-5.0) gm/dl Globulin 2.4 L (2.5-4.0) gm/dl Albumin/Globulin Ratio 1.4 (0.9-2) PG Care Time/CCT Total # of Minutes Spent Total Time Spent with Patient: Total time spent is greater than 50% in coordination of care (as documented) at patient's floor/unit and/or counseling patient: Coding Level of Care Code None Diagnoses Gallstone pancreatitis K85.10
--- NOTE | 2025-01-24 10:54 | Electrocardiogram Report ---
Test Reason : Blood Pressure : */* mmHG Vent. Rate : 121 BPM Atrial Rate : * BPM P-R Int : * ms QRS Dur : 88 ms QT Int : 292 ms P-R-T Axes : * -15 163 degrees QTcB Int : 414 ms Atrial fibrillation with rapid ventricular response with premature ventricular or aberrantly conducte d complexes Marked ST abnormality, possible lateral subendocardial injury Abnormal ECG When compared with ECG of 02-Nov-2023 09:27, Atrial fibrillation has replaced Sinus rhythm Vent. rate has increased by [address] now depressed in Inferior leads ST now depressed in Anterolateral leads T wave inversion now evident in Lateral leads Confirmed by Kp Worley ([id number]) on 01/24/2025 10:54:22 AM Referred By: REFERRED SELF Confirmed By: Kp Worley
--- NOTE | 2025-01-24 14:12 | Anesthesiology Consultation ---
Date of Service January 24, 2025 Assessment & Plan Chart Review Chart Review: Acceptable Risk for Surgery and Patient NOT seen in Pre Admission Testing Consults Requested none ASA ASA3 Proposed Anesthesia Anesthesia Type: General History Surgery Operation Date: 01/24/25 11:30 Proposed Procedures p Endoscopic Retrograde Cholangiopancreatogram - Aba Ash MD Height/Weight Height: 5 ft 6 in Weight: 90.3 kg Allergies Allergy/AdvReac Type Severity Reaction Status Date / Time quinine Allergy Severe Throat Verified 01/22/25 16:12 swelling theophylline Allergy Intermediate Rash Verified 01/22/25 16:12 Medications Home Medications Medication Instructions Recorded Confirmed Last Taken bupropion HCl 300 mg 24 hr tablet, 300 mg PO HS #30 tabs 12/13/18 01/22/25 01/21/25 extended release diphenhydramine HCl 25 mg tablet 25 mg PO DAILY PRN Allergy Symptoms 12/13/18 01/22/25 11/27/23 duloxetine 60 mg capsule,delayed 60 mg PO HS 12/13/18 01/22/25 01/21/25 release loratadine 10 mg tablet 10 mg PO DAILY #90 tabs 12/13/18 01/22/25 01/21/25 albuterol sulfate 90 mcg/actuation 2 puff inhalation .Q4-6H PRN 01/22/25 01/22/25 Unknown aerosol inhaler Shortness Of Breath Or Wheezing aspirin 81 mg tablet,delayed 81 mg PO DAILY 01/22/25 01/22/25 01/21/25 release famotidine 20 mg tablet 20 mg PO DAILY 01/22/25 01/22/25 01/22/25 fluticasone propionate 50 2 spray intranasal BID 01/22/25 01/22/25 01/21/25 mcg/actuation nasal spray,suspension loperamide 2 mg tablet (Imodium 2 mg PO DIRECTED PRN Diarrhea 01/22/25 01/22/25 Unknown A-D) magnesium oxide 1,000 mg PO DAILY PRN LEG CRAMPS 01/22/25 01/22/25 Unknown sumatriptan succinate 100 mg tablet 100 mg PO .COMPLEX PRN Migraine 01/22/25 01/22/25 Unknown Headache Active Medications Generic Name Dose Route Start Last Admin Trade Name Freq PRN Reason Stop Dose Admin Aspirin 81 mg 01/23/25 09:00 01/23/25 08:06 Aspirin 81 Mg Ectab PO 02/22/25 08:59 81 mg DAILY ARI Administration Bupropion HCl 300 mg 01/22/25 22:18 01/23/25 21:16 Bupropion Xl 300 Mg Tabcr PO 02/21/25 22:17 300 mg HS ARI Administration Duloxetine HCl 60 mg 01/22/25 22:18 01/23/25 21:16 Duloxetine Hcl 60 Mg Cap PO 02/21/25 22:17 60 mg HS ARI Administration Fluticasone Propionate 2 sprays 01/22/25 22:18 01/24/25 09:45 Fluticasone Propionate Na Spr 16 Gm Btl NA 02/21/25 22:17 2 sprays BID ARI Administration Hydromorphone HCl 0.5 mg 01/22/25 22:18 01/23/25 15:49 Hydromorphone Inj 0.5 Mg/0.5 Ml Syr IV 02/05/25 22:17 0.5 mg Q3H PRN Administration Moderate Pain (4,5,6) on NRS Hydromorphone HCl 1 mg 01/22/25 22:18 01/22/25 22:57 Hydromorphone Inj 1 Mg/Ml Syringe IV 02/05/25 22:17 1 mg Q3H PRN Administration Severe Pain (7,8,9,10) on NRS Ampicillin Sodium/Sulbactam Sodium 3,000 mg in 100 mls @ 200 mls/hr 01/23/25 03:00 01/24/25 11:53 Unasyn IV 02/02/25 02:59 Infused Q6H ARI Infusion Acetaminophen 1,000 mg in 100 mls @ 400 mls/hr 01/22/25 22:18 01/23/25 22:11 Ofirmev IV 01/25/25 22:17 Infused Q8H PRN Infusion Fever/Mild Pain (Pain 1,2,3) Famotidine 20 mg in 5 mls @ 2.5 mls/min 01/23/25 09:00 01/24/25 10:34 Pepcid 20mg Iv Push IV 02/22/25 08:59 2.5 mls/min QAM ARI Administration Potassium Chloride 20 meq/ 1,010 mls @ 75 mls/hr 01/23/25 09:00 01/24/25 12:13 Lactated Ringer's IV 01/24/25 19:18 75 mls/hr .[id number] ARI Infusion Loratadine 10 mg 01/23/25 09:00 01/24/25 09:44 Loratadine 10 Mg Tab PO 02/22/25 08:59 10 mg DAILY ARI Administration Sumatriptan Succinate 100 mg 01/23/25 04:54 01/23/25 06:08 Sumatriptan Succinate 100 Mg Tab PO 02/22/25 04:53 100 mg DAILY PRN Administration Migraine Headache Past Medical History Medical History Degenerative arthritis Left knee DJD Hypercholesteremia Diet controlled Arthritis Allergic rhinitis Migraine Depression Seasonal allergies Hx/o A Fib elevated LFT's obese anemia Pre-DM Exercise / Class Metabolic Activity II 4-5 Yardwork/Stairs/Walk up hill Past Family History Family History Mother Diabetes Father Diabetes Hypertension Colon cancer Denies family history of Ovarian cancer Prostate cancer Myocardial infarction Breast cancer Past Surgical History Surgical History History of total left knee replacement Hx of colonoscopy S/P section Past Anesthesia History No Hx of Anesthesia Complications and No Family Hx of Anesthesia Complications History of PONV No Hx of PONV and No Hx of Motion Sickness Social History Smoking Status: Never smoker Do You Dip or Chew Tobacco: No Hx Alcohol Use: Yes Alcohol type: beer, wine and hard liquor alcohol intake frequency: a few times a month Hx Substance Use: No substance use type: does not use Physical Exam Vital Signs Last Vital Signs Temp 37.3 C 01/24/25 11:42 Pulse 77 01/24/25 11:42 Resp 16 01/24/25 11:42 BP 131/79 01/24/25 11:42 Pulse Ox 95 01/24/25 11:42 O2 Del Method Room Air 01/24/25 11:42 Testing Laboratory Results 01/24/25 04:21 01/24/25 04:21 PT 10.1 Seconds (9.0-12.0) 01/22/25 15:30 INR 0.9 (0.9-1.1) 01/22/25 15:30 APTT 22 Seconds (21-31) 01/22/25 15:30 Hemoglobin A1c 5.6 % (4.5-5.6) 01/24/25 04:21 Urine Color Dark Yellow 01/22/25 17:20 Urine Appearance Clear (Clear) 01/22/25 17:20 Urine pH 6.0 (4.5-7.5) 01/22/25 17:20 Ur Specific [place] 1.015 (1.000-1.030) 01/22/25 17:20 Urine Protein Negative (Negative) 01/22/25 17:20 Urine Glucose (UA) Negative (Negative) 01/22/25 17:20 Urine Ketones 2+ (Negative) H 01/22/25 17:20 Urine Nitrite Negative (Negative) 01/22/25 17:20 Ur Leukocyte Esterase Negative (Negative) 01/22/25 17:20 Urine WBC (Auto) 0-5 /hpf (0-5) 01/22/25 17:20 Urine RBC (Auto) 6-10 /hpf (0-2) H 01/22/25 17:20 U Hyaline Cast (Auto) 0-2 /lpf (0-2) 01/22/25 17:20 U Epithel Cells (Auto) 0-2 /hpf (0-2) 01/22/25 17:20 Urine Bacteria (Auto) None Seen (None Seen) 01/22/25 17:20 01/22/25 19:32 Aerobic Blood Culture - Preliminary Blood No growth in Aerobic bottle after 24 hours. Anaerobic Blood Culture - Preliminary No growth in Anaerobic bottle after 24 hours. 01/22/25 19:31 Aerobic Blood Culture - Preliminary Blood No growth in Aerobic bottle after 24 hours. Anaerobic Blood Culture - Preliminary No growth in Anaerobic bottle after 24 hours. Electrocardiogram Date: 01/22/25 Findings: + AFIB @ (@ 121 w/ RVR w/ PVC's;ST abnl) Chest X-Ray Date: 01/22/25 Findings: + cardiomegaly (mild) and + pulmonary vascular congestion (mild) Echocardiogram Date: 01/23/25 EF: 60% LV Function: normal RWMA: + none Other Findings: + LVH (mild) and + diastolic dysfunction (Grade 1 DD) Valvular Disease: + no significant valvular disease
[2025-01-24] MEDS ORDERED: ONDANSETRON INJ 2 MG/ML 2 ML VIAL ONE (14:52)
[2025-01-24] MEDS ORDERED: LIDOCAINE 2% 2 ML VIAL/AMP(20MG/ML) INFIL ONE (14:52)
[2025-01-24] MEDS ORDERED: DEXAMETHASONE SOD INJ 4 MG/ML VIAL ONE (14:52)
[2025-01-24] MEDS ORDERED: GLYCOPYRROLATE 0.2 MG/ML VIAL ONE (14:52)
[2025-01-24] MEDS ORDERED: PROPOFOL IV EMULSION 10 MG/ML 20 ML VIAL IV ONE (14:52)
[2025-01-24] MEDS ORDERED: MIDAZOLAM HCL 1 MG/ML 2ML VIAL ONE (14:52)
[2025-01-24] MEDS ORDERED: SUGAMMADEX SODIUM 200 MG/2 ML VIAL IV ONE (14:52)
[2025-01-24] MEDS ORDERED: ROCURONIUM BROMIDE 10 MG/ML 5 ML VIAL IV ONE (14:52)
[2025-01-24] MEDS: LACTATED RINGER'S 1,000 ML IV SCH (14:59)
[2025-01-24] MEDS ORDERED: ATROPINE SULFATE 0.1 MG/ML 10ML SYR IV PRN (15:05)
[2025-01-24] MEDS ORDERED: PROMETHAZINE HCL 6.25 MG in SODIUM CHLORIDE 0.9% 50 ML IV PRN (15:05)
[2025-01-24] MEDS ORDERED: FLUMAZENIL 0.1 MG/1 ML 10 ML VIAL IV PRN (15:05)
[2025-01-24] MEDS ORDERED: NALOXONE HCL 0.4 MG/1 ML VIAL/CARP IV PRN (15:05)
[2025-01-24] MEDS ORDERED: ONDANSETRON INJ 2 MG/ML 2 ML VIAL IV PRN (15:05)
--- NOTE | 2025-01-24 16:49 | GI REPORT ---
Patient: VIRGINIA DURHAM : 1960 Sex at : Female Age: 64 Years Procedure: ERCP Date: 01/24/2025 Attending Physician: Aba Ash MD Referring MD: Jerry Olivas Indications: - Abnormal liver function test - MRCP findings of probable CBD stones Medications: - General Anesthesia - Indomethacin 100 mg ND - See the Anesthesia note for documentation of the administered medications Complications: - No immediate complications. Estimated Blood Loss: - Estimated blood loss was minimal. Procedure: - Prior to the procedure, a History and Physical was performed, and patient medications, allergies and sensitivities were reviewed. The patient's tolerance of previous anesthesia was reviewed. - The risks and benefits of the procedure and the sedation options and risks were discussed with the patient. All questions were answered and informed consent was obtained. - The ercp scope was introduced through the mouth and advanced to the duodenum and used to inject contrast into the bile duct. - The ERCP was accomplished without difficulty. - The patient tolerated the procedure well. Findings: - The bile duct was deeply cannulated with the short-nosed traction sphincterotome. Contrast was injected. I personally interpreted the bile duct images. Contrast extended to the entire biliary tree. The lower third of the main duct contained filling defect(s) consistent with stones. The common bile duct was mildly dilated. - A biliary sphincterotomy was made with a short nose sphincterotome. There was no post-sphincterotomy bleeding. - The biliary tree was swept with a 12 mm balloon. Possible extraction of stones seen. Final cholangiogram revealed no additional filling defects. A pancreatogram was not performed. Impression: - A filling defect was seen on the cholangiogram. - The common bile duct was mildly dilated. - A biliary sphincterotomy was performed. - The biliary tree was swept. No residual stones or filling defects. Recommendation: - Continue present medications. - Observe patient's clinical course. - Clear liquid diet. Procedure Code(s): - 92157, Endoscopic retrograde cholangiopancreatography (ERCP); with sphincterotomy/papillotomy - 79939, Endoscopic catheterization of the biliary ductal system, radiological supervision and interpretation Diagnosis Code(s): - R79.89, Other specified abnormal findings of blood chemistry - R93.2, Abnormal findings on diagnostic imaging of liver and biliary tract - K83.8, Other specified diseases of biliary tract CPT(R) - 2023 copyright [employer]. All Rights Reserved. The CPT codes, CCI edits and ICD codes generated are intended as suggestions and were generated based on input data. These codes are preliminary and upon prison officer review may be revised to meet current compliance and payer requirements. The provider is responsible for the final determination of appropriate codes, and modifiers. Aba Ash MD This document has been electronically signed. Note Initiated:01/24/2025 Note Completed:01/24/2025 4:48 PM [id number]
--- NOTE | 2025-01-24 16:55 | Hospitalist Progress Note ---
Date of Service January 24, 2025 Assessment & Plan (1) Gallstone pancreatitis: (2) Hypokalemia: (3) Atrial fibrillation with RVR: Plan 64-year-old female who presented on 01/22 for N/V/D. Found to have evidence of gallstone pancreatitis. #Gallstone pancreatitis - improving/resolving - -total bilirubin of 6.5 on arrival with elevated direct bili as well -other LFTs elevated but improving including t.bili -lipase 1122 --> 220 -GB ultrasound revealed prominent intrahepatic ducts and increased caliber of the common duct with CBD 1.1cm -MRCP showed suspected choledocholithiasis and enlarged CBD and enlarged pancreatic duct -there was also pericholecystic fluid -Dr Ash from [facility] consulted; plan for ERCP today -cont NPO status -IV unasyn to cover for possibility of cholangitis -repeat LFTs am tomorrow; repeat lipase in am tomorrow -cont IVF but can lower fluid rate -ERCP results will dictate remainder of her stay -- lap venita later in the stay?? -consulted Dr Gomez from gen surg for consideration of lap venita this admission #Atrial fibrillation with RVR - -Brief episode of atrial fibrillation with RVR in the emergency department -Converted back to NSR shortly thereafter -low [id number] score: 1 (female; no PMH of CHF, HTN, stroke, vascular disease, or T2DM - although she was pre-DM based on a1c of 6% earlier this year but now a1c is 5.6%) -defer on anticoagulation in light of needing ERCP, low CHADS-VASc score, etc. -baseline echo with preserved EF and normal valve function -1 brief episode of PAT today - no Rx needed #Hypokalemia - -ongoing -replace IV -repeat BMP am -mag levels wnl #Anxiety - -Continue bupropion, duloxetine #DVT proph - -defer on chemical means due to ERCP today appreciate GI assistance appreciate gen surg eval/consultation updated at bedside pt's step-daughter updated by phone briefly this evening Admission and Anticipated Discharge Date Admission Date: January 22, 2025 Subjective tele overnight - no a.fib brief run (seconds) of PAT this am patient overall feeling better in comparison to admission mild upper abdominal pain only no vomiting no dyspnea or BAINS no fevers or chills no chest pain awaiting ERCP Review of Systems Review of Systems: CV - no orthopnea, edema or cp pulm - no dyspnea GI - minimal nausea Physical Exam Physical Exam: gen - NAD, looks tired but nontoxic, pleasant eyes - scleral icterus resolved skin - jaundice resolved HENT - MMM neck - no JVD heart - RRR, s1 s2, no murmur lungs - CTA b/l abd - soft, NT, ND, BS+; no HSM ext - no edema, pulses 2+ b/l psych - a/o x 3 Results & Data Results & Data Vital Signs (Past 12 Hours) Vital Signs Temp Pulse Pulse Pulse Resp BP Pulse Ox 01/24/25 16:50 73 19 131/69 99 01/24/25 16:42 36.1 C L 72 12 149/98 H 100 01/24/25 14:42 37.5 C 80 20 128/77 94 01/24/25 13:34 78 01/24/25 11:42 37.3 C 77 16 131/79 95 01/24/25 08:50 36.2 C L 72 16 112/60 99 01/24/25 05:47 86 O2 Del Method O2 Flow Rate 01/24/25 16:50 Oxymask 3 01/24/25 16:42 Oxymask 8 01/24/25 14:42 Room Air 01/24/25 13:34 01/24/25 11:42 Room Air 01/24/25 08:50 Room Air 01/24/25 05:47 Laboratory Results Laboratory Results 01/23/25 01/24/25 05:44 04:21 WBC 11.99 H RBC 3.39 L Hgb 10.4 L Hct 31.8 L MCV 93.8 MCH 30.7 MCHC 32.7 RDW Std Deviation 49.1 H RDW Coeff of Jagruti 14.4 Plt Count 226 MPV 11.0 Immature Gran % (Auto) 0.5 Neut % (Auto) 71.5 Lymph % (Auto) 15.1 [place] % (Auto) 11.3 Eos % (Auto) 1.0 Baso % (Auto) 0.6 Neut # (Auto) 8.58 H Lymph # (Auto) 1.81 [place] # (Auto) 1.35 H Eos # (Auto) 0.12 Baso # (Auto) 0.07 Immature Gran # (Auto) 0.06 Sodium 138 139 Potassium 3.3 L 3.2 L Chloride 105 105 Carbon Dioxide 27 29 Anion Gap 6 5 BUN 8 5 L Creatinine 0.52 L 0.52 L Est Cr Clr Drug Dosing 125.1 125.1 eGFR 104.33 104.33 BUN/Creatinine Ratio 15.4 9.6 L Glucose 103 H 104 H POC Glucose Estimat Average Glucose 114 Hemoglobin A1c 5.6 Calcium 8.9 8.7 Magnesium 1.8 Total Bilirubin 2.8 H D 1.9 H AST 272 H 123 H ALT 676 H 493 H Alkaline Phosphatase 147 H 127 H Total Protein 6.2 5.8 L Albumin 3.7 3.4 Globulin 2.5 2.4 L Albumin/Globulin Ratio 1.5 1.4 Lipase 220 H Diagnostic Findings Microbiology 01/22/25 19:32 Blood Aerobic Blood Culture - Preliminary No growth in Aerobic bottle after 48 hours. 01/22/25 19:32 Blood Anaerobic Blood Culture - Preliminary No growth in Anaerobic bottle after 48 hours. 01/22/25 19:31 Blood Aerobic Blood Culture - Preliminary No growth in Aerobic bottle after 48 hours. 01/22/25 19:31 Blood Anaerobic Blood Culture - Preliminary No growth in Anaerobic bottle after 48 hours. PG Care Time/CCT Total # of Minutes Spent Total Time Spent with Patient: Total time spent is greater than 50% in coordination of care (as documented) at patient's floor/unit and/or counseling patient: Coding Level of Care Code 06280 SUB INP/OBS CARE 2/35MIN Diagnoses Gallstone pancreatitis K85.10 Hypokalemia E87.6 Atrial fibrillation with RVR I48.91
[2025-01-24] MEDS: GLUCAGON FOR INJ 1 MG VIAL ONE (17:55)
[2025-01-24] MEDS: INDOMETHACIN 50 MG SUPP PR ONE (17:55)
--- NOTE | 2025-01-24 18:32 | Anesthesiology Progress Note ---
Date of Service January 24, 2025 Anesthesia Post Procedure Vital Signs Vital Signs: Temp Pulse Pulse Pulse Resp BP Pulse Ox 01/24/25 18:16 98.1 F 72 16 128/61 93 01/24/25 17:58 97.9 F 73 16 132/75 93 01/24/25 17:37 99.1 F 77 16 135/78 01/24/25 17:20 80 17 132/79 93 01/24/25 17:10 98.4 F 79 17 127/64 93 01/24/25 17:00 79 16 125/67 95 01/24/25 16:50 73 19 131/69 99 01/24/25 16:42 97.0 F L 72 12 149/98 H 100 01/24/25 14:42 99.5 F 80 20 128/77 94 01/24/25 13:34 78 01/24/25 11:42 99.1 F 77 16 131/79 95 01/24/25 08:50 97.2 F L 72 16 112/60 99 01/24/25 05:47 86 01/24/25 01:59 99.0 F 82 16 137/75 94 01/23/25 23:47 92 H 01/23/25 23:03 100.0 F H 86 18 145/76 H 94 01/23/25 21:50 84 01/23/25 20:00 100.2 F H 81 16 145/81 H 95 O2 Del Method O2 Flow Rate 01/24/25 18:16 Nasal Cannula 2 01/24/25 17:58 Nasal Cannula 2 01/24/25 17:37 Nasal Cannula 2 01/24/25 17:20 Room Air 01/24/25 17:10 Room Air 01/24/25 17:00 Room Air 01/24/25 16:50 Oxymask 3 01/24/25 16:42 Oxymask 8 01/24/25 14:42 Room Air 01/24/25 13:34 01/24/25 11:42 Room Air 01/24/25 08:50 Room Air 01/24/25 05:47 01/24/25 01:59 Room Air 01/23/25 23:47 01/23/25 23:03 Room Air 01/23/25 21:50 01/23/25 20:00 Room Air Pain Intensity Upper Abdomen: Pain Intensity: 6 Transfer of Care Handoff Completed per policy Notes Mental Status: alert / awake / arousable and participated in evaluation Patient Amnestic to Procedure: Yes Nausea / Vomiting: adequately controlled Pain: adequately controlled Airway Patency, RR, SpO2: stable & adequate BP & HR: stable & adequate Hydration State: stable & adequate Anesthetic Complications: no major complications apparent and Pt Satisfied with anesthetic care
--- NOTE | 2025-01-24 19:52 | Surgery Consultation ---
Date of Consultation January 24, 2025 Assessment & Plan (1) Gallstone pancreatitis: The patient has been admitted on the hospitalist service. From a surgical perspective we recommend the following: It appears of the patient presented with gallstone pancreatitis the patient has improved clinically as well as had improvement of her laboratories We will repeat laboratories on 01/25/2025 to ensure that her laboratories continue to trend in the correct direction Will also recheck the patient clinically tomorrow to ensure she does not have any evidence of post ERCP pancreatitis I have discussed with the patient the benefits of having the cholecystectomy to ensure she does not get gallstone pancreatitis again. I did discuss with her the possibilities include having cholecystectomy in this admission versus being discharged home provide if she continues to clinically improve with plans for elective surgery. The determination about which route we proceed will be dependent on how she appears clinically tomorrow morning as well as how her lab values trend Will empirically make patient n.p.o. after midnight Additional recommendations were forthcoming based on her clinical course as it unfolds Supervising Physician Co-Signing Physician Notes This case has been discussed with the surgical PA. I agree with this plan History of Present Illness Reason for Consultation: Gallstone pancreatitis Attending Physician: Jerry Olivas MD History of Present Illness This is a 64-year-old female who was admitted to [facility] on 01/22/2025. The patient said that she had acute onset of epigastric abdominal pain as well as uncontrolled nausea and vomiting. Patient says that this pain persisted and would not get better despite taking [id number] Pepcid so she presented to the emergency department on the date of admission. She says she has never had any pain like this before. She does not report any other mitigating factors to her pain. She also did not report any radiation of the pain. The patient has had prior abdominal surgery in the form of . Patient did have various imaging modalities including an obstruction series that showed nonobstructive bowel gas pattern. A gallbladder ultrasound was performed which showed a distended gallbladder with cholelithiasis. There is no definitive evidence of cholecystitis. An MRCP was performed which showed a distended gallbladder with trace pericholecystic fluid and severe intra and extrahepatic biliary ductal dilatation. A filling defect in the common bile duct concerning for choledocholithiasis was noted. Patient did undergo an ERCP on 01/24/2025 where choledocholithiasis was identified and treated. Available labs were from this morning where CBC revealed white blood cell count was elevated at 11.9. Hemoglobin and hematocrit were 10.4 and 31.8 and her platelet count was normal. Chemistry profile showed sodium was 139 and her potassium was 3.2. Her BUN and creatinine were both not elevated. LFTs included a total bilirubin of 1.9 (this was 6.5 on date of admission), AST of 123 and ALT of 493 (these were 358 and 785 at time of admission), alkaline phosphatase of 127 and (this was 162 at time of admission). Review of laboratories show that at time of admission patient's lipase was elevated at 1122 and had decreased to 220 on 01/23/2025. At the time of my interview the patient was resting comfortably in bed. She had noted marked relief of her presenting symptomatology since her ERCP Allergies Allergy/AdvReac Type Severity Reaction Status Date / Time quinine Allergy Severe Throat Verified 01/24/25 14:47 swelling theophylline Allergy Intermediate Rash Verified 01/24/25 14:47 Home Medications Medication Instructions Recorded Confirmed Type bupropion HCl 300 mg 24 hr tablet, 300 mg PO HS #30 tabs 12/13/18 01/22/25 History extended release diphenhydramine HCl 25 mg tablet 25 mg PO DAILY PRN Allergy Symptoms 12/13/18 01/22/25 History duloxetine 60 mg capsule,delayed 60 mg PO HS 12/13/18 01/22/25 History release loratadine 10 mg tablet 10 mg PO DAILY #90 tabs 12/13/18 01/22/25 History albuterol sulfate 90 mcg/actuation 2 puff inhalation .Q4-6H PRN 01/22/25 01/22/25 History aerosol inhaler Shortness Of Breath Or Wheezing aspirin 81 mg tablet,delayed 81 mg PO DAILY 01/22/25 01/22/25 History release famotidine 20 mg tablet 20 mg PO DAILY 01/22/25 01/22/25 History fluticasone propionate 50 2 spray intranasal BID 01/22/25 01/22/25 History mcg/actuation nasal spray,suspension loperamide 2 mg tablet (Imodium 2 mg PO DIRECTED PRN Diarrhea 01/22/25 01/22/25 History A-D) magnesium oxide 1,000 mg PO DAILY PRN LEG CRAMPS 01/22/25 01/22/25 History sumatriptan succinate 100 mg tablet 100 mg PO .COMPLEX PRN Migraine 01/22/25 01/22/25 History Headache Patient History Medical History Degenerative arthritis Left knee DJD Hypercholesteremia Diet controlled Arthritis Allergic rhinitis Migraine Depression Seasonal allergies Surgical History History of total left knee replacement Hx of colonoscopy S/P section Family History Mother Diabetes Father Diabetes Hypertension Colon cancer Denies family history of Ovarian cancer Prostate cancer Myocardial infarction Breast cancer Social History Smoking Status: Never smoker Second Hand Exposure: No; Do You Dip or Chew Tobacco: No; Hx Alcohol Use: Yes Alcohol type: beer, wine and hard liquor Hx Substance Use: No Preferred Language: [place] Communication Ability: Effective Fiber Optic Technician Required: No Beliefs That Will Affect Care: None marital status: Current Living Situation: Spouse current occupational status: employed current occupation: [employer] Other Information That Helps Us Care for You: No Feels Safe at Home: Yes Safety Concerns: Feels Safe At This Time Childhood Exposure to Second-Hand Smoke: No Dental Care, Regularly: No Physical Activity Frequency: 3-4 Times per Week Seatbelt Use: always Sunscreen Use: Yes Assistive Devices: Glasses Review of Systems Review of Systems: All systems reviewed & are unremarkable except as noted in HPI & below Physical Exam Constitutional: WD/WN, vitals as above Eyes: + anicteric sclerae ENMT: Ears: no hearing impairment and no external ear abnormality Mouth: no oropharynx abnormality Neck: trachea midline Respiratory: normal respiratory effort; no respiratory distress and no labored breathing Cardiovascular: Rate/Rhythm: regular rate and regular rhythm Gastrointestinal (Abdomen): At the time my exam patient's abdomen was entirely benignit was soft without tenderness, particularly in the epigastric area. There is no rebound tenderness, guarding, or signs of peritonitis Musculoskeletal: No calf tenderness Skin: no jaundice Neurologic: moves all extremities Psychiatric: A+Ox3, euthymic affect Results & Data Vital Signs (Past 12 Hours) Vital Signs Temp Pulse Pulse Pulse Resp BP Pulse Ox 01/24/25 19:37 37.0 C 83 20 111/69 95 01/24/25 18:41 36.7 C 74 16 145/76 H 94 01/24/25 18:16 36.7 C 72 16 128/61 93 01/24/25 17:58 36.6 C 73 16 132/75 93 01/24/25 17:37 37.3 C 77 16 135/78 01/24/25 17:20 80 17 132/79 93 01/24/25 17:10 36.9 C 79 17 127/64 93 01/24/25 17:00 79 16 125/67 95 01/24/25 16:50 73 19 131/69 99 01/24/25 16:42 36.1 C L 72 12 149/98 H 100 01/24/25 14:42 37.5 C 80 20 128/77 94 01/24/25 13:34 78 01/24/25 11:42 37.3 C 77 16 131/79 95 01/24/25 08:50 36.2 C L 72 16 112/60 99 O2 Del Method O2 Flow Rate 01/24/25 19:37 Nasal Cannula 2 01/24/25 18:41 Nasal Cannula 2 01/24/25 18:16 Nasal Cannula 2 01/24/25 17:58 Nasal Cannula 2 01/24/25 17:37 Nasal Cannula 2 01/24/25 17:20 Room Air 01/24/25 17:10 Room Air 01/24/25 17:00 Room Air 01/24/25 16:50 Oxymask 3 01/24/25 16:42 Oxymask 8 01/24/25 14:42 Room Air 01/24/25 13:34 01/24/25 11:42 Room Air 01/24/25 08:50 Room Air PG Care Time/CCT Total # of Minutes Spent Total Time Spent with Patient: Total time spent is greater than 50% in coordination of care (as documented) at patient's floor/unit and/or counseling patient: Coding Level of Care Code 36400 IN/OBS CONSULT LVL 5,80M Diagnoses Gallstone pancreatitis K85.10
[2025-01-25 06:43] LABS: Hematocrit (blood only) 32.2 % (37.0-47.0); Hemoglobin 10.6 g/dl (12.0-16.0); Mean Corpuscular Hemoglobin 30.8 pg (25.0-34.0); Mean Corpuscular Volume 93.6 fL (80.0-100.0); Platelet Count 243 K/uL (130-400); RDW Standard Deviation 47.0 fL (36.4-46.3); Red Blood Count 3.44 M/uL (4.20-5.40); White Blood Count 10.10 K/ul (4.8-10.8)
[2025-01-25 07:03] LABS: Alanine Aminotransferase 354.0 U/L (7-52); Albumin Globulin Ratio 1.2 (0.9-2); Albumin Level 3.4 gm/dl (3.4-5.0); Alkaline Phosphatase 122.0 U/L (34-104); Anion Gap 6.0 (3-11); Bilirubin,Total 1.4 mg/dl (0.2-1.0); Blood Urea Nitrogen 10.0 mg/dl (6-23); Calcium 9.1 mg/dl (8.6-10.3); Carbon Dioxide 30.0 mmol/L (21-32); Chloride 105.0 mmol/L (98-107); Creatinine Clr Calc Pharmacy 130.6 ml/min; Globulin 2.8 gm/dl (2.5-4.0); Glucose 111.0 mg/dl (70-99(Fasting)); Potassium 3.7 mmol/L (3.5-5.1); Sodium 141.0 mmol/L (136-145); Total Protein 6.2 gm/dl (6.0-8.3)
--- NOTE | 2025-01-25 07:08 | Gastroenterology Progress Note ---
Date of Service January 25, 2025 Assessment & Plan (1) Gallstone pancreatitis: Plan: Clinically improving LFTs normalizing. Status post ERCP with sphincterotomy and stone extraction. No abdominal pain. Await surgical input regarding timing of cholecystectomy. Continue present regimen. Admission and Anticipated Discharge Date Admission Date: January 22, 2025 Subjective Doing well denies any abdominal pain no shortness of breath no chest pain Physical Exam Physical Exam: No acute distress Respiratory rate regular Cardiac rhythm regular Abdomen soft nontender Results & Data Results & Data Vital Signs (Past 12 Hours) Vital Signs Temp Pulse Pulse Resp BP Pulse Ox O2 Del Method 01/25/25 03:44 36.9 C 74 20 132/72 94 Room Air 01/24/25 23:59 36.9 C 74 20 145/63 H 92 Room Air 01/24/25 23:30 72 01/24/25 19:37 37.0 C 83 20 111/69 95 Nasal Cannula O2 Flow Rate 01/25/25 03:44 01/24/25 23:59 01/24/25 23:30 01/24/25 19:37 2 Laboratory Results Laboratory Results - last 48 hr 01/23/25 01/24/25 01/24/25 05:44 04:21 20:02 WBC 11.99 H RBC 3.39 L Hgb 10.4 L Hct 31.8 L MCV 93.8 MCH 30.7 MCHC 32.7 RDW Std Deviation 49.1 H RDW Coeff of Jagr[place] 14.4 Plt Count 226 MPV 11.0 Immature Gran % (Auto) 0.5 Neut % (Auto) 71.5 Lymph % (Auto) 15.1 [place] % (Auto) 11.3 Eos % (Auto) 1.0 Baso % (Auto) 0.6 Neut # (Auto) 8.58 H Lymph # (Auto) 1.81 [place] # (Auto) 1.35 H Eos # (Auto) 0.12 Baso # (Auto) 0.07 Immature Gran # (Auto) 0.06 Sodium 138 139 Potassium 3.3 L 3.2 L Chloride 105 105 Carbon Dioxide 27 29 Anion Gap 6 5 BUN 8 5 L Creatinine 0.52 L 0.52 L Est Cr Clr Drug Dosing 125.1 125.1 eGFR 104.33 104.33 BUN/Creatinine Ratio 15.4 9.6 L Glucose 103 H 104 H POC Glucose 235 H Estimat Average Glucose 114 Hemoglobin A1c 5.6 Calcium 8.9 8.7 Magnesium 1.8 Total Bilirubin 2.8 H D 1.9 H AST 272 H 123 H ALT 676 H 493 H Alkaline Phosphatase 147 H 127 H Total Protein 6.2 5.8 L Albumin 3.7 3.4 Globulin 2.5 2.4 L Albumin/Globulin Ratio 1.5 1.4 Lipase 220 H 01/25/25 06:15 WBC 10.10 RBC 3.44 L Hgb 10.6 L Hct 32.2 L MCV 93.6 MCH 30.8 MCHC 32.9 RDW Std Deviation 47.0 H RDW Coeff of [place] 13.7 Plt Count 243 MPV 11.0 Immature Gran % (Auto) Neut % (Auto) Lymph % (Auto) [place] % (Auto) Eos % (Auto) Baso % (Auto) Neut # (Auto) Lymph # (Auto) [place] # (Auto) Eos # (Auto) Baso # (Auto) Immature Gran # (Auto) Sodium 141 Potassium 3.7 Chloride 105 Carbon Dioxide 30 Anion Gap 6 BUN 10 Creatinine 0.50 L Est Cr Clr Drug Dosing 130.6 eGFR 105.32 BUN/Creatinine Ratio 20.0 Glucose 111 H POC Glucose Estimat Average Glucose Hemoglobin A1c Calcium 9.1 Magnesium Total Bilirubin 1.4 H AST 55 H ALT 354 H Alkaline Phosphatase 122 H Total Protein 6.2 Albumin 3.4 Globulin 2.8 Albumin/Globulin Ratio 1.2 Lipase 10 L PG Care Time/CCT Total # of Minutes Spent Total Time Spent with Patient: Total time spent is greater than 50% in coordination of care (as documented) at patient's floor/unit and/or counseling patient: Coding Level of Care Code 55306 SUB INP/OBS CARE 235MIN Diagnoses Gallstone pancreatitis K85.10
--- NOTE | 2025-01-25 07:19 | Fluoroscopy Report ---
ERCP CLINICAL HISTORY: Gallstone pancreatitis. Vomiting. Ductal dilatation. COMPARISON: MRCP dated 01/12/2025 FLUOROSCOPY TIME: 5 minutes and 29 seconds NUMBER OF FLUOROSCOPIC IMAGES: 4 Ka,r: 60.5 mGy. FINDINGS: 4 intraoperative fluoroscopic spot films are provided for interpretation. There was retrogr bernabe cannulization of the common bile duct and contrast was instilled. There is mild intra and extrahe patic biliary ductal dilatation. Image #3 demonstrates a balloon catheter inflated within the distal common bile duct. The final image demonstrates dilatation of the intrahepatic biliary ducts. No defin ite filling defects are identified on the provided images. IMPRESSION: Fluoroscopic spot images obtained during ERCP with an apparent sphincterotomy, and balloo n sweeping of the duct.. Electronically signed by: King Enrique M.D. 01/25/2025 7:18 AM
--- NOTE | 2025-01-25 07:35 | Surgery Progress Note ---
Date of Service January 25, 2025 Assessment & Plan (1) Gallstone pancreatitis: Plan: pt admitted w/ gallstone pancreatitis, found to have + choledocholithiasis ERCP yesterday confirmed CBD stones, cleared by GI WBC 10, LFTs downtrending, lipase 10 patient clinically feeling well today, eager for removal Plan on lap venita today with dr. alfaro Admission and Anticipated Discharge Date Admission Date: January 22, 2025 Supervising Physician Co-Signing Physician Notes I have seen and examined this patient this am. I have discussed a cholecystectomy with the patient including risks, benefits and alternatives. She expressed understanding of this explanation and all of her questions were answered. She has been consented for a robotic, possible laparoscopic cholecystectomy, possible open and all other indicated procedures. Subjective patient feeling better s/p ERCP. no RUQ abdominal pain or n/v. + flatus Physical Exam Physical Exam: awake/alert, no distress Gastrointestinal (Abdomen): Percussion/Palpation: abdomen soft; abdomen nontender Results & Data Vital Signs (Past 12 Hours) Vital Signs Temp Pulse Pulse Resp BP Pulse Ox O2 Del Method 01/25/25 05:40 78 01/25/25 03:44 98.4 F 74 20 132/72 94 Room Air 01/24/25 23:59 98.4 F 74 20 145/63 H 92 Room Air 01/24/25 23:30 72 01/24/25 19:37 98.6 F 83 20 111/69 95 Nasal Cannula O2 Flow Rate 01/25/25 05:40 01/25/25 03:44 01/24/25 23:59 01/24/25 23:30 01/24/25 19:37 2 PG Care Time/CCT Total # of Minutes Spent Total Time Spent with Patient: Total time spent is greater than 50% in coordination of care (as documented) at patient's floor/unit and/or counseling patient: Coding Level of Care Code 81145 SUB INP/OBS CARE 06/18MIN Diagnoses Gallstone pancreatitis K85.10
[2025-01-25] MEDS ORDERED: MIDAZOLAM HCL 1 MG/ML 2ML VIAL ONE (10:36)
[2025-01-25] MEDS ORDERED: ONDANSETRON INJ 2 MG/ML 2 ML VIAL ONE (10:36)
[2025-01-25] MEDS ORDERED: DEXAMETHASONE SOD INJ 4 MG/ML VIAL ONE (10:36)
[2025-01-25] MEDS ORDERED: LIDOCAINE 2% 2 ML VIAL/AMP(20MG/ML) INFIL ONE (10:36)
[2025-01-25] MEDS ORDERED: ROCURONIUM BROMIDE 10 MG/ML 5 ML VIAL IV ONE (10:36)
[2025-01-25] MEDS ORDERED: PROPOFOL IV EMULSION 10 MG/ML 20 ML VIAL IV ONE (10:36)
--- NOTE | 2025-01-25 11:10 | Anesthesiology Consultation ---
Date of Service January 25, 2025 Assessment & Plan Chart Review Chart Review: Acceptable Risk for Surgery and Patient NOT seen in Pre Admission Testing Consults Requested none ASA ASA2 Proposed Anesthesia Anesthesia Type: General Risk / Benefits Reviewed With: PT / POA / Parent / Guardian, Accepts Plan and Informed Consent Obtained History Surgery Operation Date: 01/24/25 11:30 Proposed Procedures p Endoscopic Retrograde Cholangiopancreatogram - Aba Ash MD Operation Date: 01/25/25 08:10 Proposed Procedures p Laparoscopic Cholecystectomy - Rosalva Latif DO Height/Weight Height: 5 ft 6 in Weight: 90.7 kg Allergies Allergy/AdvReac Type Severity Reaction Status Date / Time quinine Allergy Severe Throat Verified 01/24/25 14:47 swelling theophylline Allergy Intermediate Rash Verified 01/24/25 14:47 Medications Home Medications Medication Instructions Recorded Confirmed Last Taken bupropion HCl 300 mg 24 hr tablet, 300 mg PO HS #30 tabs 12/13/18 01/22/25 01/21/25 extended release diphenhydramine HCl 25 mg tablet 25 mg PO DAILY PRN Allergy Symptoms 12/13/18 01/22/25 11/27/23 duloxetine 60 mg capsule,delayed 60 mg PO HS 12/13/18 01/22/25 01/21/25 release loratadine 10 mg tablet 10 mg PO DAILY #90 tabs 12/13/18 01/22/25 01/21/25 albuterol sulfate 90 mcg/actuation 2 puff inhalation .Q4-6H PRN 01/22/25 01/22/25 Unknown aerosol inhaler Shortness Of Breath Or Wheezing aspirin 81 mg tablet,delayed 81 mg PO DAILY 01/22/25 01/22/25 01/21/25 release famotidine 20 mg tablet 20 mg PO DAILY 01/22/25 01/22/25 01/22/25 fluticasone propionate 50 2 spray intranasal BID 01/22/25 01/22/25 01/21/25 mcg/actuation nasal spray,suspension loperamide 2 mg tablet (Imodium 2 mg PO DIRECTED PRN Diarrhea 01/22/25 01/22/25 Unknown A-D) magnesium oxide 1,000 mg PO DAILY PRN LEG CRAMPS 01/22/25 01/22/25 Unknown sumatriptan succinate 100 mg tablet 100 mg PO .COMPLEX PRN Migraine 01/22/25 01/22/25 Unknown Headache Active Medications Generic Name Dose Route Start Last Admin Trade Name Gideonq PRN Reason Stop Dose Admin Aspirin 81 mg 01/23/25 09:00 01/23/25 08:06 Aspirin 81 Mg Ectab PO 02/22/25 08:59 81 mg DAILY ARI Administration Bupropion HCl 300 mg 01/22/25 22:18 01/24/25 20:59 Bupropion Xl 300 Mg Tabcr PO 02/21/25 22:17 300 mg HS ARI Administration Duloxetine HCl 60 mg 01/22/25 22:18 01/24/25 20:59 Duloxetine Hcl 60 Mg Cap PO 02/21/25 22:17 60 mg HS ARI Administration Fluticasone Propionate 2 sprays 01/22/25 22:18 01/25/25 08:13 Fluticasone Propionate Na Spr 16 Gm Btl NA 02/21/25 22:17 2 sprays BID ARI Administration Hydromorphone HCl 0.5 mg 01/22/25 22:18 01/23/25 15:49 Hydromorphone Inj 0.5 Mg/0.5 Ml Syr IV 02/05/25 22:17 0.5 mg Q3H PRN Administration Moderate Pain (4,5,6) on NRS Hydromorphone HCl 1 mg 01/22/25 22:18 01/24/25 14:27 Hydromorphone Inj 1 Mg/Ml Syringe IV 02/05/25 22:17 1 mg Q3H PRN Administration Severe Pain (7,8,9,10) on NRS Ampicillin Sodium/Sulbactam Sodium 3,000 mg in 100 mls @ 200 mls/hr 01/23/25 03:00 01/25/25 09:23 Unasyn IV 02/02/25 02:59 Infused Q6H ARI Infusion Acetaminophen 1,000 mg in 100 mls @ 400 mls/hr 01/22/25 22:18 01/25/25 08:14 Ofirmev IV 01/25/25 22:17 Infused Q8H PRN Infusion Fever/Mild Pain (Pain 1,2,3) Famotidine 20 mg in 5 mls @ 2.5 mls/min 01/23/25 09:00 01/25/25 08:11 Pepcid 20mg Iv Push IV 02/22/25 08:59 2.5 mls/min QAM ARI Administration Lactated Ringer's 1,000 mls @ 15 mls/hr 01/24/25 15:00 01/25/25 10:19 Lr IV 01/27/25 14:59 15 mls/hr .Q24H ARI Administration Loratadine 10 mg 01/23/25 09:00 01/25/25 08:11 Loratadine 10 Mg Tab PO 02/22/25 08:59 10 mg DAILY ARI Administration Sumatriptan Succinate 100 mg 01/23/25 04:54 01/23/25 06:08 Sumatriptan Succinate 100 Mg Tab PO 02/22/25 04:53 100 mg DAILY PRN Administration Migraine Headache NPO Date Last Intake of Fluids: 01/24/25 Time Last Intake of Fluids: 23:45 Date Last Intake of Solids: 01/24/25 Time Last Intake of Solids: 20:00 Past Medical History Medical History Degenerative arthritis Left knee DJD Hypercholesteremia Diet controlled Arthritis Allergic rhinitis Migraine Depression Seasonal allergies Past Family History Family History Mother Diabetes Father Diabetes Hypertension Colon cancer Denies family history of Ovarian cancer Prostate cancer Myocardial infarction Breast cancer Past Surgical History Surgical History History of total left knee replacement Hx of colonoscopy S/P section Past Anesthesia History No Hx of Anesthesia Complications and No Family Hx of Anesthesia Complications Social History Smoking Status: Never smoker Do You Dip or Chew Tobacco: No Hx Alcohol Use: Yes Alcohol type: beer, wine and hard liquor alcohol intake frequency: a few times a month Hx Substance Use: No substance use type: does not use Review of Systems ROS Unobtainable: All systems reviewed & are unremarkable except as noted in HPI & below Physical Exam Vital Signs Last Vital Signs Temp 36.8 C 01/25/25 10:07 Pulse 81 01/25/25 10:07 Resp 20 01/25/25 10:07 BP 141/79 H 01/25/25 10:07 Pulse Ox 95 01/25/25 10:07 O2 Del Method Room Air 01/25/25 10:07 O2 Flow Rate 2 01/24/25 19:37 ENMT Mouth: no TMJ abnormality Thyromental Distance: > or= 3.5 Finger Breadths Mallampati Class: II Neck normal visual inspection and trachea midline; neck extension not limited Respiratory normal respiratory effort Auscultation: lungs clear to auscultation bilaterally Cardiovascular Rate/Rhythm: regular rate and regular rhythm Heart Sounds: no murmur Musculoskeletal Spine: normal cervical ROM Extremities: full ROM of extremities Neurologic moves all extremities Psychiatric Orientation: alert and oriented x 3 Testing Laboratory Results 01/25/25 06:15 01/25/25 06:15 PT 10.1 Seconds (9.0-12.0) 01/22/25 15:30 INR 0.9 (0.9-1.1) 01/22/25 15:30 APTT 22 Seconds (21-31) 01/22/25 15:30 Hemoglobin A1c 5.6 % (4.5-5.6) 01/24/25 04:21 Urine Color Dark Yellow 01/22/25 17:20 Urine Appearance Clear (Clear) 01/22/25 17:20 Urine pH 6.0 (4.5-7.5) 01/22/25 17:20 Ur Specific [place] 1.015 (1.000-1.030) 01/22/25 17:20 Urine Protein Negative (Negative) 01/22/25 17:20 Urine Glucose (UA) Negative (Negative) 01/22/25 17:20 Urine Ketones 2+ (Negative) H 01/22/25 17:20 Urine Nitrite Negative (Negative) 01/22/25 17:20 Ur Leukocyte Esterase Negative (Negative) 01/22/25 17:20 Urine WBC (Auto) 0-5 /hpf (0-5) 01/22/25 17:20 Urine RBC (Auto) 6-10 /hpf (0-2) H 01/22/25 17:20 U Hyaline Cast (Auto) 0-2 /lpf (0-2) 01/22/25 17:20 U Epithel Cells (Auto) 0-2 /hpf (0-2) 01/22/25 17:20 Urine Bacteria (Auto) None Seen (None Seen) 01/22/25 17:20 01/22/25 19:32 Aerobic Blood Culture - Preliminary Blood No growth in Aerobic bottle after 48 hours. Anaerobic Blood Culture - Preliminary No growth in Anaerobic bottle after 48 hours. 01/22/25 19:31 Aerobic Blood Culture - Preliminary Blood No growth in Aerobic bottle after 48 hours. Anaerobic Blood Culture - Preliminary No growth in Anaerobic bottle after 48 hours. Other Testing Electrocardiogram Date: 01/22/25 Findings: + AFIB @ (@ 121 w/ RVR w/ PVC's;ST abnl) Chest X-Ray Date: 01/22/25 Findings: + cardiomegaly (mild) and + pulmonary vascular congestion (mild) Echocardiogram Date: 01/23/25 EF: 60% LV Function: normal RWMA: + none Other Findings: + LVH (mild) and + diastolic dysfunction (Grade 1 DD) Valvular Disease: + no significant valvular disease
[2025-01-25] MEDS ORDERED: ATROPINE SULFATE 0.1 MG/ML 10ML SYR IV PRN ×2 (11:11→12:43)
[2025-01-25] MEDS ORDERED: ONDANSETRON INJ 2 MG/ML 2 ML VIAL IV PRN ×2 (11:11→12:43)
[2025-01-25] MEDS ORDERED: HYDROmorphone INJ 2 MG/ML SYR/VIAL ONE (12:16)
[2025-01-25] MEDS: BUPIVACAINE/EPINEPHRINE 0.5% MPF 1:200,000 30 ML VIAL ONE (12:30)
[2025-01-25] MEDS ORDERED: SUGAMMADEX SODIUM 200 MG/2 ML VIAL IV ONE ×2 (12:37)
[2025-01-25] MEDS ORDERED: LABETALOL HCL IV 5 MG/ML 20ML IV PRN (12:43)
[2025-01-25] MEDS ORDERED: DEXAMETHASONE SOD INJ 4 MG/ML VIAL IV PRN (12:43)
[2025-01-25] MEDS ORDERED: HYDROmorphone INJ 2 MG/ML SYR/VIAL IV PRN (12:43)
--- NOTE | 2025-01-25 12:54 | Operative Report ---
PG Post Operative Report Pre & Post Diagnosis Operation Date: 01/25/25 08:10 Pre-Op Diagnosis: Gallstone pancreatitis Post-Op Diagnosis: Gallstone pancreatitis I identified the patient and participated in the time-out.: Yes Procedure Operation Date: 01/25/25 08:10 Actual Procedures p Laparoscopic Cholecystectomy(Not Applicable) - Rosalva Latif DO Surgeon Rosalva Latif DO Camera Repairman GHAZALA Ca Estimated Blood Loss 7 Findings See Below Enlarged GB containing stones Specimens Gallbladder Complications None Indications Pt admitted with an episode of gallstone pancreatitis and elevated transaminases Description of Procedure Patient was brought back to the operating room and placed on the operating room table in supine position. She was connected to cardiac and oxygen monitoring, supplemental O2 was provided and SCDs were applied to bilateral lower extremities. The abdomen was prepped and draped in typical sterile fashion and a timeout was conducted. Local anesthetic was used anesthetize the skin and subcutaneous tissues prior to making incisions and all incisions were made with an 11 blade. Intra-abdominal access was gained using a Veress needle superior to the umbilic us and this was confirmed with a saline drop test. CO2 insufflation was initiated and pneumoperitoneum was created local pressure 15 mmHg. Once this pressure was reached, a 5 mm laparoscope was used to insert a 5 mm trocar under direct visualization with an Optiview port. An additional 11 millimeter trocar was inserted the epigastric region and 2 additional 5 mm trocars along the right subcostal margin. 4 table was positioned in reverse Trendelenburg and left side down. The gallbladder was identified distended and the cystic triangle was dissected. The posterior vascular branch and the cystic artery were both identified. These were ligated with 5 mm clips using 2 clips proximally 1 distally and then the structures were transected using laparoscopic marilynn. The cystic duct was enlarged with a larger 10 mm clip nonprofit manager was used. To permit this use, the 11 mm trocar was upgraded to a 12. The duct was clipped with 3 clips proximally 2 clips distally. The duct was transected with laparoscopic marilynn and the gallbladder was cauterized from the liver bed. Bleeding along the way was controlled using cautery. Area was irrigated and suctioned dried. The liver bed was checked for hemostasis. There was no bleeding. The gallbladder was placed in an Endo Catch bag and removed from the epigastric incision which did need to be slightly enlarged to allow for removal. Gallbladder was then placed in a label container to pathology for further analysis. All instruments were removed. Excess pneumoperitoneum was evacuated and the OR table was returned to neutral position. The fascia at the epigastric incision was approximated using 0 Vicryl suture. Additional local anesthetic was used anesthetize the subcutaneous tissues each incision. Each incision was approximated using 4-0 Vicryl suture. The abdomen was wiped clean with a saline soaked lap pad and dried. The incisions were further sealed with Dermabond. Patient tolerated the procedure well. She was awakened from anesthesia, secured airway was removed and she was transferred to recovery in stable condition. I attest to the content of the Intraoperative Record and any orders documented therein. Any exceptions are noted below.
--- NOTE | 2025-01-25 13:20 | Anesthesiology Progress Note ---
Date of Service January 25, 2025 Anesthesia Post Procedure Vital Signs Vital Signs: Temp Pulse Pulse Pulse Resp BP BP 01/25/25 13:15 92 H 22 122/66 01/25/25 13:05 81 20 125/63 01/25/25 12:55 36.1 C L 82 17 131/59 L 01/25/25 10:07 36.8 C 81 20 141/79 H 01/25/25 08:58 36.5 C 128/70 01/25/25 08:11 37.2 C 85 16 153/94 H 01/25/25 05:40 78 01/25/25 03:44 36.9 C 74 20 132/72 01/24/25 23:59 36.9 C 74 20 145/63 H 01/24/25 23:30 72 01/24/25 19:37 37.0 C 83 20 111/69 01/24/25 18:41 36.7 C 74 16 145/76 H 01/24/25 18:16 36.7 C 72 16 128/61 01/24/25 17:58 36.6 C 73 16 132/75 01/24/25 17:37 37.3 C 77 16 135/78 01/24/25 17:20 80 17 132/79 01/24/25 17:10 36.9 C 79 17 127/64 01/24/25 17:00 79 16 125/67 01/24/25 16:50 73 19 131/69 01/24/25 16:42 36.1 C L 72 12 149/98 H 01/24/25 14:42 37.5 C 80 20 128/77 01/24/25 13:34 78 Pulse Ox O2 Del Method O2 Flow Rate 01/25/25 13:15 96 Oxymask 5 01/25/25 13:05 99 Oxymask 10 01/25/25 12:55 90 Oxymask 10 01/25/25 10:07 95 Room Air 01/25/25 08:58 01/25/25 08:11 95 Room Air 01/25/25 05:40 01/25/25 03:44 94 Room Air 01/24/25 23:59 92 Room Air 01/24/25 23:30 01/24/25 19:37 95 Nasal Cannula 2 01/24/25 18:41 94 Nasal Cannula 2 01/24/25 18:16 93 Nasal Cannula 2 01/24/25 17:58 93 Nasal Cannula 2 01/24/25 17:37 Nasal Cannula 2 01/24/25 17:20 93 Room Air 01/24/25 17:10 93 Room Air 01/24/25 17:00 95 Room Air 01/24/25 16:50 99 Oxymask 3 01/24/25 16:42 100 Oxymask 8 01/24/25 14:42 94 Room Air 01/24/25 13:34 Pain Intensity Upper Abdomen: Pain Intensity: 2 Transfer of Care Handoff Completed per policy Notes Mental Status: alert / awake / arousable and participated in evaluation Patient Amnestic to Procedure: Yes Nausea / Vomiting: adequately controlled Pain: adequately controlled Airway Patency, RR, SpO2: stable & adequate BP & HR: stable & adequate Hydration State: stable & adequate Anesthetic Complications: no major complications apparent and Pt Satisfied with anesthetic care
[2025-01-25] MEDS: LACTATED RINGER'S 1,000 ML IV SCH (13:49)
[2025-01-25 14:09] VITALS: RESP 16
[2025-01-25 14:51] VITALS: O2SAT 94
--- NOTE | 2025-01-25 16:11 | Discharge Summary ---
Discharge Summary Date of Service January 25, 2025 Principal Dx & Hospital Course #1 = Principal Diagnosis (1) Gallstone pancreatitis: (2) Hypokalemia: (3) Atrial fibrillation with RVR: Plan 64-year-old female who presented on 01/22 for N/V/D. Found to have evidence of gallstone pancreatitis. #Gallstone pancreatitis - improving/resolving - -total bilirubin of 6.5 on arrival with elevated direct bili as well -other LFTs elevated but improving including t.bili -lipase 1122 --> 220 -GB ultrasound revealed prominent intrahepatic ducts and increased caliber of the common duct with CBD 1.1cm -MRCP showed suspected choledocholithiasis and enlarged CBD and enlarged pancreatic duct -there was also pericholecystic fluid -Dr Ash from [facility] [place] [facility] consulted; -S/P ERCP biliary sphincterotomy -S/P cholecystectomy. -Patient feeling well and is agreeable for discharge #Atrial fibrillation with RVR - -Brief episode of atrial fibrillation with RVR in the emergency department -Converted back to NSR shortly there after -low [id number] score: 1 (female; no PMH of CHF, HTN, stroke, vascular disease, or T2DM - although she was pre-DM based on a1c of 6% earlier this year but now a1c is 5.6%) -defer on anticoagulation in light of needing ERCP, low CHADS-VASc score, etc. -baseline echo with preserved EF and normal valve function -1 brief episode of PAT today - no Rx needed #Hypokalemia - -ongoing -mag levels wnl #Anxiety - -Continue bupropion, duloxetine Admission HPI Per Admitting Provider Mrs. Naqvi is a 64-year-old female with PMH of asthma, migraines, anxiety, and depression. She presented on 01/22 for acute onset of nausea, vomiting, and epigastric pain that awoke her from sleep at 2 AM. Patient tried to take Pepcid, but threw it back up. She characterizes it as a sharp stabbing e pigastric pain that is constant 8 out of 10. No radiation to the back, but she has noticed episodes of left scapular pain this past week. Additionally, the patient had a small amount of diarrhea this morning. She went to the [facility] urgent care today and was told she was looking "jaundiced". Patient tried to eat 2 Ritz crackers at 7 AM, but could not keep them down. She is also been unable to keep down any sips of water throughout the day. Patient took 2 Tylenol around 6 AM, because she thought she had a fever, but she was unsure if the stay down for long enough to have an effect. Additionally, patient had 2 episodes of "yellow stool" on Thursday and Thursday, but this returned to normal/brown stool on Thursday. Patient did not take any of her regular morning medications today. She takes aspirin daily, and has done so since last summer when she had her left knee surgery. Patient does not have a history of atrial fibrillation to her knowledge. Only prior abdominal surgery was for C- section. No prior history of pancreatitis. She denies prior history of heavy alcohol use. She only drinks socially once or twice per month, last drink was a glass of wine on 01/19. Patient denies smoking or tobacco use. Patient is hypertensive at 159/81 at time of admission; vitals otherwise stable. ED course: NSS 1000 mL IV x 1 Zofran 4 mg IV x 1 Morphine 4 mg IV x 1 ROS: Patient endorses fever, chills, night-sweats, epigastric pain, N/V/D, and epistaxis (which patient attributes to vomiting). Patient denies chest pain, SOB, chest palpitations, cough, hematemesis, blood in the urine/stool, or burning with urination. Discharge Exam Constitutional WD/WN, vitals as above Neck trachea midline, no thyromegaly Respiratory normal respiratory effort, lungs clear to auscultation Cardiovascular RRR, no murmur, no edema Gastrointestinal (Abdomen) normal bowel sounds, soft, nontender, no hepatosplenomegaly Discharge Plan Discharge Items Patient Disposition: Home - Self-Care Reason For Visit: PANCREATITIS Discharge Diagnosis: laparoscopic cholecystectomy Condition on Discharge: Fair Activity: Per Instructions section Lifting: No more than 10 pounds Bathing Comment: may shower starting 01/26/25; no soaking in tubs/pools x 2 weeks Exercise/Sports: Wait until after follow-up appointment Driving/Machine Use: no driving while on narcotics for pain Non-emergency contact: Primary Care Provider and Surgeon Call non-emergency contact if: you have any medication questions, your symptoms worsen, your pain is not controlled, you have a fever, your temperature is above 101.5, your wound has increased redness, your wound has increased drainage and your wound pain has increased Follow-up/Referrals: Dennis Mckeon MD [Primary Care Provider] - 02/06/25 10:00 am (APPT. Arsenio BARAJAS PA-C) Jason-Rosalva Kaur, DO [Physician] - (please call to schedule follow up in the office in 2 weeks ) Diet: Regular Addtl Attending Provider Instructions: SPECIAL CARE INSTRUCTIONS: * You have skin glue over your incisions called dermabond. you may shower with this on. It will tend to dissolve and fall off within a couple weeks. Do not pick at the skin glue * You may shower 01/26 . NO soaking in pools or baths for 2 weeks * No lifting greater than 10lbs. No strenuous exercise until cleared by surgeon. Light walking is accepted. * No driving while taking narcotic pain medication; wait at least 3 days * No drinking alcohol while taking narcotic pain medication * May use Ibuprofen/Tylenol over the counter for pain as tolerated. Do not exceed 3grams of Tylenol per 24 hours * Expect some swelling and bruising. * Diet- you may resume your regular diet Call your doctor if: * Temperature above 101 degrees, nausea/vomiting, fever/chills * Pain not relieved by pain medicine ordered * There is increased drainage or redness from any incision * You have any unanswered questions or concerns [phone]. FOLLOW UP VISIT: General Surgery Dr. Jason Kaur If not already scheduled, please call the office for a follow-up visit. Office In 1-2 weeks Addtl Oncology Rep Specialist Provider Instructions: recommend followup with PCP in 1-2 weeks Pending Studies at Discharge: Yes Studies:: surgical pathology Stand-Alone Forms: [employer], Smoking Cessation Medications and DC Order Prescriptions: Continued loratadine 10 mg tablet 10 mg PO DAILY Qty: 90 duloxetine 60 mg capsule,delayed release(DR/EC) 60 mg PO HS bupropion HCl 300 mg tablet extended release 24 hr 300 mg PO HS Qty: 30 diphenhydramine HCl 25 mg tablet 25 mg PO DAILY PRN (Reason: Allergy Symptoms) loperamide [Imodium A-D] 2 mg Tablet 2 mg PO DIRECTED PRN (Reason: Diarrhea) aspirin 81 mg Tablet,Delayed Release (Dr/Ec) 81 mg PO DAILY famotidine 20 mg Tablet 20 mg PO DAILY Rx Instructions: HAD EMESIS AFTER TAKING magnesium oxide 500 mg magnesium Tablet 1,000 mg PO DAILY PRN (Reason: LEG CRAMPS) albuterol sulfate 90 mcg/actuation HFA aerosol inhaler 2 puff INHALATION .Q4-6H PRN (Reason: Shortness Of Breath Or Wheezing) fluticasone propionate 50 mcg/actuation [place],Suspension 2 spray INTRANASAL BID Rx Instructions: administer into each nostril sumatriptan succinate 100 mg tablet 100 mg PO .COMPLEX PRN (Reason: Migraine Headache) Rx Instructions: 100 mg PO TAKE 1 TABLET FOR MIGRAINER RELIEF. MAY REPEAT 2 HOURS LATER. MAXIMUM 200MG/DAY; Discharge Orders: Discharge Order (Routine); Ordered 01/25/25 Ordered By: Donato Burris/Other Patient Handouts: After Gallbladder Surgery, Having Laparoscopic Cholecystectomy Admission Data Admit Date/Time: 01/22/25 18:56 Attending Provider: Donato Smith Admit Provider: Jerry Olivas Primary Care Provider: Dennis Mckeon Other Providers: Jerry Olivas; Aba Ash I; Rosalva Latif Other Interventions: Discharge Summary Assessment (RN) Last Done: 01/25/25 16:41 Hospital Stay Data Consultations 01/22/25 16:55 ED Decision to Admit Stat 01/22/25 18:52 Consult Gastroenterology Routine 01/24/25 17:38 Consult General Surgery Routine Procedures Performed Operation Date: 01/25/25 08:10 Actual Procedures p Laparoscopic Cholecystectomy(Not Applicable) - Rosalva Latif DO Diagnostic Imagining Performed 01/22/25 15:30 US gallbladder Stat 01/22/25 18:51 MR MRCP Urgent 01/24/25 [place] ERCP biliary ductal Routine Pending Results Patient Have Any Pending Studies at Discharge: Yes Discharge Instructions Given to Patient (Per Discharging Provider) SPECIAL CARE INSTRUCTIONS: * You have skin glue over your incisions called dermabond. you may shower with this on. It will tend to dissolve and fall off within a couple weeks. Do not pick at the skin glue * You may shower 01/26 . NO soaking in pools or baths for 2 weeks * No lifting greater than 10lbs. No strenuous exercise until cleared by surgeon. Light walking is accepted. * No driving while taking narcotic pain medication; wait at least 3 days * No drinking alcohol while taking narcotic pain medication * May use Ibuprofen/Tylenol over the counter for pain as tolerated. Do not exceed 3grams of Tylenol per 24 hours * Expect some swelling and bruising. * Diet- you may resume your regular diet Call your doctor if: * Temperature above 101 degrees, nausea/vomiting, fever/chills * Pain not relieved by pain medicine ordered * There is increased drainage or redness from any incision * You have any unanswered questions or concerns [phone]. FOLLOW UP VISIT: General Surgery Dr. Jason Kaur If not already scheduled, please call the office for a follow-up visit. Office In 1-2 weeks Total Time Total Time Spent Total Time Spent (In Minutes): 32 Coding Level of Care Code 18300 INP/OBS DISCH >30 MIN Diagnoses Gallstone pancreatitis K85.10 Hypokalemia E87.6 Atrial fibrillation with RVR I48.91
[2025-01-25 16:17] VITALS: BP 145/78; PULSE 92; TEMP 98.8
--- NOTE | 2025-01-27 17:58 | Electrocardiogram Report ---
Test Reason : Blood Pressure : */* mmHG Vent. Rate : 68 BPM Atrial Rate : 68 BPM P-R Int : 160 ms QRS Dur : 88 ms QT Int : 458 ms P-R-T Axes : 52 -7 71 degrees QTcB Int : 487 ms Normal sinus rhythm Nonspecific ST and T wave abnormality Abnormal ECG When compared with ECG of 22-Jan-2025 16:12, Sinus rhythm has replaced Atrial fibrillation Vent. rate has decreased by 53 bpm Nonspecific T wave abnormality has replaced inverted T waves in Lateral leads Confirmed by Kp Worley ([id number]) on 01/27/2025 5:57:43 PM Referred By: REFERRED SELF Confirmed By: Kp Worley
--- NOTE | 2025-02-08 09:18 | Coding Query ---
CODING QUERY To promote full compliance with coding requirements relating to patient care, provider participation is requested in all cases of tank assembler uncertainty. Please assist us with the question(s) below: Coding Question(s): Path results indicate chronic cholecystitis. Based on your clinical judgement can you provide a diagnosis based on the pathology results? Physician's Response(s): acute on chronic cholecystitis Thank you Carmen Kaur Principal Diagnosis: "that condition established after study, to be chiefly responsible for occasioning the admission of the patient to the hospital for care." Co-Existing Principal Diagnosis: "when two or more diagnoses equally meet the criteria for principal diagnosis as determined by the circumstances of admission, diagnostic work up, and/or therapy provided, and the Alphabetic Index, Tabular List, or another coding guideline does not provide sequencing direction, any one of the diagnoses may be sequenced first." "When the physician has documented what appears to be a current diagnosis in the body of the record, but has not included the diagnosis in the final diagnostic statement, the physician should be asked whether the diagnosis should be added." (Source Coding Clinic 2 QTR90. p3-4) CATHY
== END 2025-01-25 17:02 | disposition home or self-care (01) | DRG 418 ==
LOC: ED 14:46 → 2N 18:56 → SUATTDRO 18:56 → 2N 21:52